=== PATIENT | female | born 1965 | race Caucasian/White ===

== ENCOUNTER 2016-12-14 13:29 | Emergency (ER) | payer MEDICARE, OTHER ==
--- NOTE | 2016-12-14 14:06 | ED ---
General Adult HPI - General Chief complaint: Recheck/Abnormal Lab/Rx Stated complaint: Rx Refill Time Seen by Provider: 12/14/16 13:51 Source: patient, RN notes reviewed Mode of arrival: ambulatory Limitations: no limitations - History of Present Illness Initial comments: 51-year-old female presents to the emergency Department chief complaint of medication refill. Patient states that she moved back from [place] last month and she does not see for another week and a half. Patient states that she needs her medications refilled. Patient states that she hasn't had any fever chills cough cold runny nose with this. Patient denies any complaints at this time. Patient denies any recent fever, chills, shortness of breath, chest pain, back pain, abdominal pain, nausea vomiting, numbness or tingling, dysuria or hematuria, constipation or diarrhea, headaches or visual changes, or any other current symptoms. - Related Data Home Medications Medication Instructions Recorded Confirmed HYDROcodone/APAP 10-325MG [[place] 1 tab PO QID PRN 12/14/16 12/14/16 10-325] LORazepam [Ativan] 2 mg PO TID 12/14/16 12/14/16 Medroxyprogesterone Acetate 150 mg IM Q90D 12/14/16 12/14/16 [Depo-Provera] Previous Rx's Medication Instructions Recorded Divalproex [Depakote] 500 mg PO BID #10 tab 12/14/16 Esomeprazole Magnesium [NexIUM] 40 mg PO DAILY #10 tab 12/14/16 Levothyroxine Sodium [Synthroid] 150 mcg PO DAILY #10 tab 12/14/16 Allergies Allergy/AdvReac Type Severity Reaction Status Date / Time codeine Allergy Unknown Verified 12/14/16 14:12 Review of Systems ROS Statement: Those systems with pertinent positive or pertinent negative responses have been documented in the HPI. ROS Other: All systems not noted in ROS Statement are negative. Past Medical History Past Medical History: GERD/Reflux Additional Past Medical History / Comment(s): back pain History of Any Multi-Drug Resistant Organisms: None Reported Past Surgical History: Breast Surgery Past Psychological History: Anxiety, Bipolar Smoking Status: Current some day smoker Past Alcohol Use History: None Reported Past Drug Use History: None Reported General Exam Limitations: no limitations General appearance: alert, in no apparent distress ENT exam: Present: normal exam, mucous membranes moist Neck exam: Present: normal inspection. Absent: tenderness, meningismus, lymphadenopathy Respiratory exam: Present: normal lung sounds bilaterally. Absent: respiratory distress, wheezes, rales, rhonchi, stridor Cardiovascular Exam: Present: regular rate, normal rhythm, normal heart sounds. Absent: systolic murmur, diastolic murmur, rubs, gallop, clicks Neurological exam: Present: alert, oriented X3 Psychiatric exam: Present: normal affect, normal mood Skin exam: Present: warm, dry, intact, normal color. Absent: rash Course Vital Signs 12/14/16 13:41 Temperature 98.2 F Pulse Rate 94 Respiratory 20 Rate Blood Pressure 145/91 O2 Sat by Pulse 97 Oximetry Medical Decision Making - Medical Decision Making 51-year-old female presents emergency Department chief complaint of needing a medication refill. This and massive heart was done and we did verify the medications with pharmacy. At this time an abscess done that does not show the patient having any medications given from here in [place]. Unable assess medications from [place]. Her pharmacy technicians have been looking into it. At this time we are unable to verify the patient's medications. This and we will give her her Depakote as well as her Nexium - Lab Data Lab Results 12/14/16 Range/Units 14:14 Urine Opiates Screen Not Detected (NotDetected) Ur Oxycodone Screen Not Detected (NotDetected) Urine Methadone Screen Not Detected (NotDetected) Ur Propoxyphene Screen Not Detected (NotDetected) Ur Barbiturates Screen Not Detected (NotDetected) U Tricyclic Antidepress Not Detected (NotDetected) Ur Phencyclidine Scrn Not Detected (NotDetected) Ur Amphetamines Screen Not Detected (NotDetected) U Methamphetamines Scrn Not Detected (NotDetected) U Benzodiazepines Scrn Detected H (NotDetected) Urine Cocaine Screen Not Detected (NotDetected) U Marijuana (THC) Screen Detected H (NotDetected) Disposition Clinical Impression: Encounter for medication refill Disposition: HOME SELF-CARE Condition: Stable Instructions: Valproic Acid (By mouth) Additional Instructions: Please use medication as discussed. Please follow up with family doctor if symptoms have not improved over the next two days. Please return to the emergency room if your symptoms increase or worsen or for any other concerns. Prescriptions: Divalproex [Depakote] 500 mg PO BID #10 tab Esomeprazole Magnesium [NexIUM] 40 mg PO DAILY #10 tab Levothyroxine Sodium [Synthroid] 150 mcg PO DAILY #10 tab Referrals: Gabbie Rosen MD [Primary Care Provider] - 1-2 days Time of Disposition: 15:04
[2016-12-14 15:14] VITALS: BP 140/90; PULSE 92; RESP 18; TEMP 98.3
== END 2016-12-14 15:13 | disposition home or self-care (01) ==
LOC: EC 13:29
DX: Z76.0 Encounter for issue of repeat prescription (principal); F17.200 Nicotine dependence, unspecified, uncomplicated; Z88.5 Allergy status to narcotic agent; Z79.3 Long term (current) use of hormonal contraceptives; Z79.899 Other long term (current) drug therapy
CPT/HCPCS: 80306; 99282

== ENCOUNTER 2017-09-26 22:13 | Inpatient (IN) | payer MEDICARE ==
[2017-09-26] MEDS ORDERED: IBUPROFEN 600 MG TAB PO STA (23:15)
[2017-09-26] MEDS ORDERED: ACETAMINOPHEN TAB 500 MG TAB PO STA (23:15)
[2017-09-26] MEDS ORDERED: LORazepam 1 MG TAB PO STA (23:29)
[2017-09-27 00:05] LABS: HCT 44.5 % (34.0-46.0); HGB 15.2 gm/dL (11.4-16.0); MCH 28.6 pg (25.0-35.0); MCHC 34.1 g/dL (31.0-37.0); MCV 83.8 fL (80.0-100.0); Mean Platelet Volume 7.8; Platelet Count 338 k/uL (150-450); RBC 5.31 m/uL (3.80-5.40); RDW 14.8 % (11.5-15.5); WBC 15.9 k/uL (3.8-10.6)
[2017-09-27 00:08] LABS: Alcohol <10 mg/dL
[2017-09-27 00:13] LABS: Valproic Acid (Depakene) <10.0 ug/mL
[2017-09-27 00:15] LABS: Appearance,Urine Clear (Clear); Bacteria,Urine Rare /hpf; Bilirubin,Urine Negative (Negative); Blood,Urine Trace (Negative); Color,Urine Light Yellow; Glucose,Urine (UA) Negative (Negative); Ketones,Urine Negative (Negative); Leukocyte Esterase,Urine Negative (Negative); Nitrite,Urine Negative (Negative); PH, Urine 6.5 (5.0-8.0); Protein,Urine Negative (Negative); RBC,Urine <1 /hpf (0-5); Specific Gravity,Urine 1.001 (1.001-1.035); Squamous Epithelial Cell,Urine <1 /hpf (0-4); Urobilinogen,Urine <2.0 mg/dL (<2.0); WBC,Urine <1 /hpf (0-5)
[2017-09-27 00:22] LABS: Amphetamine Screen,Urine Not Detected (NotDetected); Barbiturate Screen,Urine Not Detected (NotDetected); Benzodiazepines Screen,Urine Detected (NotDetected); Cocaine Screen,Urine Not Detected (NotDetected); Methadone Screen, Urine Not Detected (NotDetected); Opiate Screen,Urine Not Detected (NotDetected); Oxycodone Screen, Urine Not Detected (NotDetected); Phencyclidine Screen,Urine Not Detected (NotDetected); Tricyclic Antidepressant,Urine Not Detected (NotDetected); Urn Cannabinoid Scrn Not Detected (NotDetected)
[2017-09-27 00:40] LABS: ALT 15 U/L (9-52); AST 21 U/L (14-36); Albumin 4.2 g/dL (3.5-5.0); Alkaline Phosphatase 83 U/L (38-126); Anion Gap 16 mmol/L; Blood Urea Nitrogen 5 mg/dL (7-17); Calcium 9.9 mg/dL (8.4-10.2); Carbon Dioxide 24 mmol/L (22-30); Chloride 100 mmol/L (98-107); Glucose 93 mg/dL (74-99); Potassium 3.4 mmol/L (3.5-5.1); Sodium 140 mmol/L (137-145); Total Bilirubin 0.3 mg/dL (0.2-1.3); Total Protein 7.4 g/dL (6.3-8.2)
--- NOTE | 2017-09-27 00:53 | ED ---
Recheck HPI - General Chief Complaint: Recheck/Abnormal Lab/Rx Stated Complaint: mental health Time Seen by Provider: 09/26/17 22:46 Source: patient, RN notes reviewed, old records reviewed Mode of arrival: ambulatory Limitations: no limitations - History of Present Illness Initial Comments: Patient is a 51-year-old female chief complaint of michelle. Patient is demonstrating behavior of pressured speech, and loose associations. She states that she knows Hitler from [place]. She also states that she's been on multiple medications to manage this. She states she's been out of her medications for the past few days. Patient reports that she has not felt feverish or chilled or has any signs of infection. She states that she has been admitted in the past. She states she wants to be admitted to the psychiatric unit to get stabilized. - Related Data Home Medications Medication Instructions Recorded Confirmed Levothyroxine Sodium [Synthroid] 25 mcg PO DAILY 04/15/17 09/26/17 Diazepam [Valium] 10 mg PO HS PRN 09/26/17 09/26/17 Esomeprazole Magnesium [NexIUM] 40 mg PO DAILY 09/26/17 09/26/17 FLUoxetine HCL [PROzac] 20 mg PO BID 09/26/17 09/26/17 HYDROcodone/APAP 10-325MG [[place] 1 tab PO Q6H PRN 09/26/17 09/26/17 10-325] LORazepam [Ativan] 2 mg PO TID 09/26/17 09/26/17 Previous Rx's Medication Instructions Recorded ARIPiprazole IM [Abilify Maintena] 400 mg IM QMONTH #1 vial 05/19/17 Divalproex ER [Depakote ER] 1,500 mg PO HS #90 tab.er.24h 05/19/17 QUEtiapine [SEROquel] 100 mg PO 0900,1600 #60 tab 05/19/17 QUEtiapine [SEROquel] 400 mg PO HS #30 tab 05/19/17 Allergies Allergy/AdvReac Type Severity Reaction Status Date / Time codeine AdvReac Itching Verified 09/26/17 23:27 Review of Systems ROS Statement: Those systems with pertinent positive or pertinent negative responses have been documented in the HPI. ROS Other: All systems not noted in ROS Statement are negative. Past Medical History Past Medical History: GERD/Reflux Additional Past Medical History / Comment(s): back pain History of Any Multi-Drug Resistant Organisms: None Reported Past Surgical History: Breast Surgery Past Psychological History: Anxiety, Bipolar Smoking Status: Current some day smoker Past Alcohol Use History: None Reported Past Drug Use History: None Reported General Exam - General Exam Comments Initial Comments: This is a manic 51-year-old female. She is alert. Limitations: no limitations General appearance: alert, in no apparent distress, anxious Head exam: Present: atraumatic, normocephalic, normal inspection Eye exam: Present: normal appearance, PERRL, EOMI. Absent: scleral icterus, conjunctival injection, periorbital swelling ENT exam: Present: normal exam, mucous membranes moist Neck exam: Present: normal inspection. Absent: tenderness, meningismus, lymphadenopathy Respiratory exam: Present: normal lung sounds bilaterally. Absent: respiratory distress, wheezes, rales, rhonchi, stridor Cardiovascular Exam: Present: regular rate, normal rhythm, normal heart sounds. Absent: systolic murmur, diastolic murmur, rubs, gallop, clicks GI/Abdominal exam: Present: soft, normal bowel sounds. Absent: distended, tenderness, guarding, rebound, rigid Back exam: Present: normal inspection Neurological exam: Present: alert, CN II-XII intact Psychiatric exam: Present: anxious, manic. Absent: normal affect, normal mood Skin exam: Present: warm, dry, intact, normal color. Absent: rash Course Vital Signs 09/26/17 09/26/17 09/26/17 22:31 22:50 23:55 Temperature 101.7 F H 99.2 F Pulse Rate 111 H Respiratory 20 16 Rate Blood Pressure 140/87 O2 Sat by Pulse 96 Oximetry 09/27/17 02:19 Temperature 98.8 F Pulse Rate 93 Respiratory 18 Rate Blood Pressure 119/75 O2 Sat by Pulse 96 Oximetry - Reevaluation(s) Reevaluation #1: 09/27/17 04:02 Patient's moods have been labile through emergency department course. She's been calm and cooperative and shortly afterward she has been yelling and screaming and nurses. Medical Decision Making - Medical Decision Making 51-year-old female presented to emergency Department chief complaint of michelle and labile moods. She also was somewhat concerned that people are out to get her. Patient initially arrived with a fever 101. She is given IV fluids labwork obtained. Patient labwork was reviewed elevated white blood cell count. She would not have a chest x-ray any further evaluation in regards to the source of the fever at this time. Urinalysis shows no infection. She complains of no abdominal pain cough or any other symptoms. She is quite manic. Labile mood swings. She states that she knows Hitler from [place], she also states that she is the best. 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 She isn't demonstrating was so she should. Patient will be admitted to the psychiatric unit after she was cleared for EPS. - Lab Data Result diagrams: 09/26/17 23:45 09/26/17 23:45 Lab Results 09/26/17 09/26/17 09/26/17 Range/Units 23:45 23:45 23:45 WBC 15.9 H (3.8-10.6) k/uL RBC 5.31 (3.80-5.40) m/uL Hgb 15.2 (11.4-16.0) gm/dL Hct 44.5 (34.0-46.0) % MCV 83.8 (80.0-100.0) fL MCH 28.6 (25.0-35.0) pg MCHC 34.1 (31.0-37.0) g/dL RDW 14.8 (11.5-15.5) % Plt Count 338 (150-450) k/uL Neutrophils % (Manual) 59 % Band Neutrophils % 8 % Lymphocytes % (Manual) 27 % Monocytes % (Manual) 6 % Neutrophils # (Manual) 10.60 H (1.3-7.7) k/uL Lymphocytes # (Manual) 4.29 (1.0-4.8) k/uL Monocytes # (Manual) 0.95 (0-1.0) k/uL Nucleated RBCs 0 (0-0) /100 WBC Manual Slide Review Performed Large Platelets Present Polychromasia Present Poikilocytosis (manual Present Anisocytosis (manual) Present Sodium 140 (137-145) mmol/L Potassium 3.4 L (3.5-5.1) mmol/L Chloride 100 (98-107) mmol/L Carbon Dioxide 24 (22-30) mmol/L Anion Gap 16 mmol/L BUN 5 L (7-17) mg/dL Creatinine 0.60 (0.52-1.04) mg/dL Est GFR (CKD-EPI)AfAm >90 (>60 ml/min/1.73 sqM) Est GFR (CKD-EPI)NonAf >90 (>60 ml/min/1.73 sqM) Glucose 93 (74-99) mg/dL Calcium 9.9 (8.4-10.2) mg/dL Total Bilirubin 0.3 (0.2-1.3) mg/dL AST 21 (14-36) U/L ALT 15 (9-52) U/L Alkaline Phosphatase 83 (38-126) U/L Total Protein 7.4 (6.3-8.2) g/dL Albumin 4.2 (3.5-5.0) g/dL Urine Color Light Yellow Urine Appearance Clear (Clear) Urine pH 6.5 (5.0-8.0) Ur Specific [place] 1.001 (1.001-1.035) Urine Protein Negative (Negative) Urine Glucose (UA) Negative (Negative) Urine Ketones Negative (Negative) Urine Blood Trace H (Negative) Urine Nitrite Negative (Negative) Urine Bilirubin Negative (Negative) Urine Urobilinogen <2.0 (<2.0) mg/dL Ur Leukocyte Esterase Negative (Negative) Urine RBC <1 (0-5) /hpf Urine WBC <1 (0-5) /hpf Ur Squamous Epith Cells <1 (0-4) /hpf Urine Bacteria Rare H (None) /hpf Urine Opiates Screen Not Detected (NotDetected) Ur Oxycodone Screen Not Detected (NotDetected) Urine Methadone Screen Not Detected (NotDetected) Ur Propoxyphene Screen Not Detected (NotDetected) Ur Barbiturates Screen Not Detected (NotDetected) Valproic Acid <10.0 ug/mL U Tricyclic Antidepress Not Detected (NotDetected) Ur Phencyclidine Scrn Not Detected (NotDetected) Ur Amphetamines Screen Not Detected (NotDetected) U Methamphetamines Scrn Not Detected (NotDetected) U Benzodiazepines Scrn Detected H (NotDetected) Urine Cocaine Screen Not Detected (NotDetected) U Marijuana (THC) Screen Not Detected (NotDetected) Serum Alcohol <10 mg/dL Disposition Clinical Impression: Michelle, Psychosis Disposition: ADMITTED IP TO THIS HOSP Condition: Stable Time of Disposition: 04:03
[2017-09-27 01:21] LABS: Band Neutrophils % 8 %; Lymphocytes # (M) 4.29 k/uL (1.0-4.8); Monocytes # (M) 0.95 k/uL (0-1.0); Neutrophils % (M) 59 %; Nucleated Red Blood Cells 0 /100 WBC (0-0); Polychromasia Present; Total Cells Counted 100
[2017-09-27 01:22] LABS: Anisocytosis (M) Present; Large Platelets Present
[2017-09-27 01:23] LABS: Poikilocytosis (M) Present
[2017-09-27] MEDS ORDERED: MAGNESIUM HYDROXIDE 2,400 MG/10 ML CUP PO PRN (02:45)
[2017-09-27] MEDS ORDERED: ZIPRASIDONE 20 MG VIAL IM PRN (02:45)
[2017-09-27] MEDS ORDERED: MAG HYDROX/AL HYDROX/SIMETH 30 ML CUP PO PRN (02:45)
[2017-09-27] MEDS: NICOTINE 14MG/24HR PATCH TRANSDERM SCH (08:41)
[2017-09-27] MEDS: PANTOPRAZOLE 40 MG TABLET PO SCH (08:41)
[2017-09-27] MEDS: LEVOTHYROXINE 25 MCG TAB PO SCH (08:41)
[2017-09-27] MEDS ORDERED: LORazepam 2 MG/ML INJ IM PRN (08:52)
[2017-09-27] MEDS: LORazepam 1 MG TAB PO PRN ×2 (11:27→19:23)
[2017-09-27] MEDS ORDERED: POTASSIUM CHLORIDE ER 20 MEQ TAB.ER PO STA (11:44)
[2017-09-27] MEDS: ZIPRASIDONE 20 MG VIAL IM PRN ×2 (12:07→21:20)
[2017-09-27] MEDS: IBUPROFEN 200 MG TAB PO PRN ×2 (12:31→19:23)
--- NOTE | 2017-09-27 13:17 | P.CONS ---
History of Present Illness - Reason for Consult Consult date: 09/27/17 Medical management Requesting physician: Sandra Agrawal - Chief Complaint Not taking psych meds - History of Present Illness This is a 51-year-old female with a known past medical history of bipolar, anxiety, hypothyroidism and nicotine dependence. Patient presents to the emergency room with the chief complaint of herson and not taking her psych meds. In the ER she did demonstrated behavior of pressured speech and loose associations. She was stating things such as she knows Hitler from [place]. Patient is currently in the psychiatric unit lying in bed comfortably with no evidence of distress. Patient refuses to answer any questions or to be examined. All of history was obtained from ER report. Patient however did report that she had been without her medications for a few days. She did present with a fever of 101.7 and a white count of 15.9 heart rate was 111. She 's had no further fevers and heart rate has normalized. She refused blood work and chest x-ray. Urinalysis shows no evidence of any infection. Patient does have some trace blood noted in her urinalysis. Drug screen was positive for benzodiazepine. Serum alcohol level less than 10. Potassium was 3.4 and she is receiving supplement. Review of Systems Patient refused to be assessed for review of systems Past Medical History Past Medical History: GERD/Reflux Additional Past Medical History / Comment(s): back pain History of Any Multi-Drug Resistant Organisms: None Reported Past Surgical History: Breast Surgery Smoking Status: Current every day smoker Medications and Allergies Home Medications Medication Instructions Recorded Confirmed Type Levothyroxine Sodium [Synthroid] 25 mcg PO DAILY 04/15/17 09/27/17 History ARIPiprazole IM [Abilify Maintena] 400 mg IM QMONTH #1 vial 05/19/17 09/27/17 Rx Divalproex ER [Depakote ER] 1,500 mg PO HS #90 tab.er.24h 05/19/17 09/27/17 Rx QUEtiapine [SEROquel] 100 mg PO 0900,1600 #60 tab 05/19/17 09/27/17 Rx QUEtiapine [SEROquel] 400 mg PO HS #30 tab 05/19/17 09/27/17 Rx Diazepam [Valium] 10 mg PO HS PRN 09/26/17 09/27/17 History Esomeprazole Magnesium [NexIUM] 40 mg PO DAILY 09/26/17 09/27/17 History FLUoxetine HCL [PROzac] 20 mg PO BID 09/26/17 09/27/17 History HYDROcodone/APAP 10-325MG [[place] 1 tab PO Q6H PRN 09/26/17 09/27/17 History 10-325] LORazepam [Ativan] 2 mg PO TID 09/26/17 09/27/17 History Allergies Allergy/AdvReac Type Severity Reaction Status Date / Time codeine AdvReac Itching Verified 09/27/17 04:58 Physical Exam Vitals: Vital Signs Temp Pulse Pulse Resp BP BP Pulse Ox 09/27/17 04:28 97.6 F 84 17 137/79 09/27/17 02:19 98.8 F 93 18 119/75 96 09/26/17 23:55 99.2 F 09/26/17 22:50 16 09/26/17 22:31 101.7 F H 111 H 20 140/87 96 Intake and Output 09/26/17 09/27/17 09/27/17 22:59 06:59 14:59 Other: Weight 63.503 kg 81.6 kg Patient refused to be examined Results CBC & Chem 7: 09/26/17 23:45 09/26/17 23:45 Labs: Abnormal Lab Results - Last 24 Hours (Table) 09/26/17 09/26/17 09/26/17 Range/Units 23:45 23:45 23:45 WBC 15.9 H (3.8-10.6) k/uL Neutrophils # (Manual) 10.60 H (1.3-7.7) k/uL Potassium 3.4 L (3.5-5.1) mmol/L BUN 5 L (7-17) mg/dL Urine Blood Trace H (Negative) Urine Bacteria Rare H (None) /hpf U Benzodiazepines Scrn Detected H (NotDetected) Assessment and Plan Assessment: 1. Bipolar history with evidence of herson on presentation. Patient has been admitted to the psychiatric unit. Patient has been without her medications at home for few days. Psychiatry is following closely will await their further recommendations. Also check thyroid level. 2. Evidence of fever, leukocytosis and tachycardia present on admission. No evidence of a UTI. Patient refused chest x-ray in the ER. Another chest x-ray will be ordered. Patient is refusing any further questioning 3. Nicotine dependence: Continue nicotine patch 4. Hypothyroidism: Check TSH level. Continue Synthroid 5. hypokalemia: Potassium 3.4. Will give potassium supplement. Repeat potassium level in a.m. Thank you for this consultation. We will follow up on routine blood work in the morning and chest x-ray. And then follow along with you as needed. Please call if there is any questions or concerns. Time with Patient: Greater than 30 (Greater than 50% of the total time spent in counseling and coordination of care. I performed an examination of the patient and discussed their management with the physician Dog Catcher. I have reviewed the Physician Dog Catcher's notes and agree with the documented findings and plan of care)
--- NOTE | 2017-09-27 13:56 | P.HP ---
Psychiatric H&P - . H&P Date: 09/27/17 History & Physical: Allergies Allergy/AdvReac Type Severity Reaction Status Date / Time codeine AdvReac Itching Verified 09/27/17 04:58 Vital Signs Temp 97.6 F 09/27/17 04:28 Pulse 84 09/27/17 04:28 Resp 17 09/27/17 04:28 BP 137/79 09/27/17 04:28 Pulse Ox 96 09/27/17 02:19 Intake & Output 09/26/17 09/27/17 09/27/17 18:59 06:59 18:59 Weight 81.6 kg Laboratory Last Values WBC 15.9 k/uL (3.8-10.6) H 09/26/17 23:45 RBC 5.31 m/uL (3.80-5.40) 09/26/17 23:45 Hgb 15.2 gm/dL (11.4-16.0) 09/26/17 23:45 Hct 44.5 % (34.0-46.0) 09/26/17 23:45 MCV 83.8 fL (80.0-100.0) 09/26/17 23:45 MCH 28.6 pg (25.0-35.0) 09/26/17 23:45 MCHC 34.1 g/dL (31.0-37.0) 09/26/17 23:45 RDW 14.8 % (11.5-15.5) 09/26/17 23:45 Plt Count 338 k/uL (150-450) 09/26/17 23:45 Neutrophils % (Manual) 59 % 09/26/17 23:45 Band Neutrophils % 8 % 09/26/17 23:45 Lymphocytes % (Manual) 27 % 09/26/17 23:45 Monocytes % (Manual) 6 % 09/26/17 23:45 Neutrophils # (Manual) 10.60 k/uL (1.3-7.7) H 09/26/17 23:45 Lymphocytes # (Manual) 4.29 k/uL (1.0-4.8) 09/26/17 23:45 Monocytes # (Manual) 0.95 k/uL (0-1.0) 09/26/17 23:45 Nucleated RBCs 0 /100 WBC (0-0) 09/26/17 23:45 Manual Slide Review Performed 09/26/17 23:45 Large Platelets Present 09/26/17 23:45 Polychromasia Present 09/26/17 23:45 Poikilocytosis (manual Present 09/26/17 23:45 Anisocytosis (manual) Present 09/26/17 23:45 Sodium 140 mmol/L (137-145) 09/26/17 23:45 Potassium 3.4 mmol/L (3.5-5.1) L 09/26/17 23:45 Chloride 100 mmol/L (98-107) 09/26/17 23:45 Carbon Dioxide 24 mmol/L (22-30) 09/26/17 23:45 Anion Gap 16 mmol/L 09/26/17 23:45 BUN 5 mg/dL (7-17) L 09/26/17 23:45 Creatinine 0.60 mg/dL (0.52-1.04) 09/26/17 23:45 Est GFR (CKD-EPI)AfAm >90 (>60 ml/min/1.73 sqM) 09/26/17 23:45 Est GFR (CKD-EPI)NonAf >90 (>60 ml/min/1.73 sqM) 09/26/17 23:45 Glucose 93 mg/dL (74-99) 09/26/17 23:45 Calcium 9.9 mg/dL (8.4-10.2) 09/26/17 23:45 Total Bilirubin 0.3 mg/dL (0.2-1.3) 09/26/17 23:45 AST 21 U/L (14-36) 09/26/17 23:45 ALT 15 U/L (9-52) 09/26/17 23:45 Alkaline Phosphatase 83 U/L (38-126) 09/26/17 23:45 Total Protein 7.4 g/dL (6.3-8.2) 09/26/17 23:45 Albumin 4.2 g/dL (3.5-5.0) 09/26/17 23:45 Urine Color Light Yellow 09/26/17 23:45 Urine Appearance Clear (Clear) 09/26/17 23:45 Urine pH 6.5 (5.0-8.0) 09/26/17 23:45 Ur Specific [place] 1.001 (1.001-1.035) 09/26/17 23:45 Urine Protein Negative (Negative) 09/26/17 23:45 Urine Glucose (UA) Negative (Negative) 09/26/17 23:45 Urine Ketones Negative (Negative) 09/26/17 23:45 Urine Blood Trace (Negative) H 09/26/17 23:45 Urine Nitrite Negative (Negative) 09/26/17 23:45 Urine Bilirubin Negative (Negative) 09/26/17 23:45 Urine Urobilinogen <2.0 mg/dL (<2.0) 09/26/17 23:45 Ur Leukocyte Esterase Negative (Negative) 09/26/17 23:45 Urine RBC <1 /hpf (0-5) 09/26/17 23:45 Urine WBC <1 /hpf (0-5) 09/26/17 23:45 Ur Squamous Epith Cells <1 /hpf (0-4) 09/26/17 23:45 Urine Bacteria Rare /hpf (None) H 09/26/17 23:45 Urine Opiates Screen Not Detected (NotDetected) 09/26/17 23:45 Ur Oxycodone Screen Not Detected (NotDetected) 09/26/17 23:45 Urine Methadone Screen Not Detected (NotDetected) 09/26/17 23:45 Ur Propoxyphene Screen Not Detected (NotDetected) 09/26/17 23:45 Ur Barbiturates Screen Not Detected (NotDetected) 09/26/17 23:45 Valproic Acid <10.0 ug/mL 09/26/17 23:45 U Tricyclic Antidepress Not Detected (NotDetected) 09/26/17 23:45 Ur Phencyclidine Scrn Not Detected (NotDetected) 09/26/17 23:45 Ur Amphetamines Screen Not Detected (NotDetected) 09/26/17 23:45 U Methamphetamines Scrn Not Detected (NotDetected) 09/26/17 23:45 U Benzodiazepines Scrn Detected (NotDetected) H 09/26/17 23:45 Urine Cocaine Screen Not Detected (NotDetected) 09/26/17 23:45 U Marijuana (THC) Screen Not Detected (NotDetected) 09/26/17 23:45 Serum Alcohol <10 mg/dL 09/26/17 23:45 09/27/17 13:19 Identification: Patient is a 51-year-old female who presented to the emergency room stating that she needed treatment. History of Present Illness: Patient is a poor historian, she was unable to give me any history when I interviewed her. Patient's chart was reviewed and the patient was last admitted here in March 2017. Speaking with the [facility] liaison the patient apparently was also in [facility] in May 2017. She has not been seen for any medication reviews a [facility] since her discharge from here in April as well as her discharge from [facility] in May. Patient was on Abilify long-acting injectable in March, Seroquel 500 mg a day and Depakote 1500 mg extended release at bedtime. Patient required 2 antipsychotics to control her symptoms. Patient's MAP was reviewed and the patient has not been prescribed any opiates within the recent past, no Valium has been prescribed and the patient was most recently prescribed Ativan 2 mg given numbers 90 on August 09. 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 Patient was asking for IM medications to relax as well as something for pain. Patient was unable to give any history time. Past Psychiatric History: Patient was last here in March 2017 and was also hospitalized at [facility] in May 2017. Patient was placed on Depakote , Abilify, Seroquel during her last admission here. Further information regarding the patient's last treatment is not available as the patient is not able to cooperate during the interview. Past Medical/Surgical History: Patient has a history of hypothyroidism, GERD Family History: Unable to obtain at this time Social History: Patient is unable to give any history at this time as she is not able to respond to questioning Substance Use History: Unable to obtain Legal History: Unable to obtain Mental status: Appearance/Attitude: Patient is dressed in a hospital gown, disheveled, pacing Behavior: Patient does not exhibit any psychomotor retardation but is agitated, pacing during the interview Speech/Language: Patient's speech is pressured Thought Process: Patient is not able to respond to questions as she is exhibiting flight of ideas Thought Content: Patient does not appear to be responding to internal stimuli, but she is rambling and pressured and mentions John, that her soldiers are downstairs, talks about mensa, talked about requiring medication. Patient requested medication to relax and for her pain. Patient was unable to respond to any questions. Suicidal/Homicidal Ideation: Patient did not make any suicidal or homicidal statements Sensorium/Cognition: Patient is alert and oriented to person and location further testing is not possible as patient is not cooperative with questioning Mood/Affect: Patient's mood is agitated, irritable and labile Insight/Judgment: Patient's insight and judgment are poor Intellectual Functioning: Patient's intellectual functioning appears average Strength/Weakness: Unable to assess Assessment: Patient was admitted to the inpatient unit in March and was here for one month before she was released, since her release in April the patient has not been compliant with any medication review follow-up at [facility] and in fact required another admission to [facility] in May 2017. On her discharge at the last admission patient was maintained on Abilify 400 mg long-acting every month, Seroquel 500 mg a day and Depakote 1500 mg extended release at bedtime. It is unclear if the patient was compliant with any of these medications for any period of time after her discharge. Patient presents today with symptoms of herson with a rambling pressured speech, flight of ideas, pacing and agitated as well as being irritable and is unable to respond or cooperate to take a history. Admission Diagnosis: Bipolar type I disorder, manic episode Plan: Patient was admitted on a voluntary basis, routine observation in group and activity therapy were ordered. Patient had blood work ordered although she refused this morning and it is been reordered. Patient was seen in medical consultation. Patient is being continued on her Synthroid. Patient was restarted on Depakote at 500 mg extended-release to target her mood and we'll slowly be increased to her prior dose of 1500 mg at bedtime. Patient and I discussed her response to Abilify which even on long-acting the patient required a second antipsychotic. Patient will be tried on Invega and will begin 6 mg at bedtime. Patient also has Geodon 10 mg 4 times a day as needed for agitation as well as Ativan. Should patient respond to oral Invega Invega long-acting injectable will be presented to the patient. Patient requires hospitalization to further stabilize her mood. Once patient is more stable a more complete history will be obtained. The hemoglobin A1c and lipid panel will also be obtained, patient was a repeat CBC, basic metabolic panel and TSH were also ordered. 09/27/17 13:23 09/27/17 13:25 09/27/17 13:51 09/27/17 13:54
[2017-09-27] MEDS: PALIPERIDONE 6 MG TAB.ER.24 PO SCH (20:07)
[2017-09-27] MEDS: DIVALPROEX ER 500 MG TAB.ER.24H PO SCH (20:07)
[2017-09-28] MEDS: IBUPROFEN 200 MG TAB PO PRN ×2 (04:13→21:56)
[2017-09-28] MEDS: LEVOTHYROXINE 25 MCG TAB PO SCH (06:49)
[2017-09-28] MEDS: ZIPRASIDONE 20 MG VIAL IM PRN ×2 (08:51→22:40)
[2017-09-28] MEDS: PANTOPRAZOLE 40 MG TABLET PO SCH (08:51)
[2017-09-28] MEDS: NICOTINE 14MG/24HR PATCH TRANSDERM SCH (08:51)
[2017-09-28] MEDS: LORazepam 2 MG/ML INJ IM PRN ×2 (08:52→23:46)
--- NOTE | 2017-09-28 14:27 | P.PN ---
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 I discussed her prior medication of Abilify with her and she agreed that it had not been working well for her and we discussed again Invega being started. Patient also felt that the Depakote had been effective for her and I discussed with her that it had been restarted as well. Patient states that she was feeling restless and wanted more medication to help her relax. Mental Status: Appearance/Attitude: Patient is casually dressed, her eye makeup was applied heavily, her hair was styled. She was cooperative Behavior: Patient did not exhibit any psychomotor retardation, but appears restless is up pacing in her room Speech/Language: Patient's speech remains pressured, normal volume and rhythm and coherent Thought Process: Patient was able to respond to some questions in a goal- directed fashion, evidence of flight of ideas Thought Content: Patient is observed holding her hands to her head as though she is talking on the phone, having a conversation, patient continues to express ideas regarding [employer], the [employer] although less than yesterday. 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 Patient did not sleep more than 4 hours last night. She is eating. Suicidal/Homicidal Ideation: Patient does not verbalize any suicidal or homicidal ideation Sensorium/Cognition: Patient is alert and oriented to person, situation, date and patient is not able to focus Mood/Affect: Patient's mood remains labile, her affect is appropriate to her mood Insight/Judgment: Patient's insight and judgment are fair Assessment: Patient was less pressured in her speech today, was able to respond to some questions in a goal-directed fashion but continues to need much verbal redirection to do so. Patient states that she needs something to help her relax and she feels very tense. Patient was able to discuss the Depakote a been effective for her but she did not think that the Abilify had done much for her. Patient states that she came here to get back on her medications. Patient slept 4 hours last night, continues to express delusional ideation and is observed holding her hand to her head and talking as though she is on the phone. Plan: Patient continue on Invega 6 mg at bedtime, Depakote 500 mg extended- release at bedtime and Geodon and Ativan on an as-needed basis. Patient again refused blood work, we will reorder when patient is better able to cooperate as well as reordering the chest x-ray as patient is not able to leave the unit for such a test at this time. Patient continues to require hospitalization to further stabilize her mood and psychotic symptoms.
[2017-09-28] MEDS: LORazepam 1 MG TAB PO PRN (16:34)
[2017-09-28] MEDS: PALIPERIDONE 6 MG TAB.ER.24 PO SCH (21:56)
[2017-09-28] MEDS: DIVALPROEX ER 500 MG TAB.ER.24H PO SCH (21:56)
[2017-09-29] MEDS: ACETAMINOPHEN TAB 325 MG TAB PO PRN ×2 (00:33→17:03)
[2017-09-29] MEDS: LEVOTHYROXINE 25 MCG TAB PO SCH ×2 (05:55→08:47)
[2017-09-29] MEDS: PANTOPRAZOLE 40 MG TABLET PO SCH (08:47)
[2017-09-29] MEDS: NICOTINE 14MG/24HR PATCH TRANSDERM SCH (08:48)
[2017-09-29] MEDS: LORazepam 1 MG TAB PO PRN ×2 (08:50→16:14)
[2017-09-29] MEDS: ZIPRASIDONE 20 MG VIAL IM PRN ×2 (11:57→19:25)
--- NOTE | 2017-09-29 12:06 | P.PN ---
Progress Note - Text Progress Note Date: 09/29/17 Interval History: Patient is a 51-year-old female who was seen today and she reports that she continues to feel restless, she states that she needs to relax. Patient is pacing in the villatoro and states that she does not want to try lithium she has been on it in the past and didn't like it, she complained of side effects from it. Patient complained of being ALLERGIC to Seroquel and states that she did not like the Abilify. Patient slept last night she reports she did well last evening. Patient required constant verbal redirection to respond to my questions. Mental Status: Appearance/Attitude: Patient is casually dressed, heavily applied makeup, lipstick outside the outline of her lips Behavior: Patient does not display any psychomotor retardation, patient is pacing in the halls, holding her hand to her head as though it was a phone and constantly carrying on a conversation. Speech/Language: Patient's speech is pressured, she is coherent Thought Process: Patient exhibits flight of ideas, she is at times able to respond in a goal-directed fashion to some questions Thought Content: Patient denies auditory or visual hallucinations, patient is seen walking the halls holding her hand to her head as though it was a phone and carrying on a conversation with Pres. [employer], with her , with friends. Patient slept about 4 hours last night, she did sleep during the day yesterday. When patient is awake she is up pacing in the halls, talking to herself. Suicidal/Homicidal Ideation: Patient denies current suicidal or homicidal ideation Sensorium/Cognition: Patient is alert and oriented to person, situation and further testing is not performed Mood/Affect: Patient's mood is labile, at times irritable and her affect is appropriate to her mood Insight/Judgment: Patient's insight and judgment are impaired Assessment: Patient continues to exhibit manic behavior with pressured speech, talking on an imaginary phone to present Carlton and others, patient is not sleeping, is constantly pacing in the villatoro. Patient when interviewed today declined a trial of lithium, stating that it gave her side effects and declined Seroquel. Stating she was ALLERGIC to it. Patient attempts to attend groups and activities but is unable to participate appropriately. Patient has been receiving Geodon as needed as well as Ativan as needed with fair results. Plan: Patient will continue on Invega 6 mg at bedtime will continue to titrate this medication, her Depakote will be increased oh thousand milligrams at bedtime. Patient continued to receive Geodon and Ativan as needed. Patient continues to require hospitalization to stabilize her mood and target her psychotic symptoms. We will reorder a CBC and TSH for tomorrow morning as patient may be more cooperative at this time.
[2017-09-29] MEDS ORDERED: DIVALPROEX ER 500 MG TAB.ER.24H PO SCH (21:00)
[2017-09-29] MEDS: PALIPERIDONE 6 MG TAB.ER.24 PO SCH (21:02)
[2017-09-30] MEDS: LORazepam 2 MG/ML INJ IM PRN (01:10)
[2017-09-30] MEDS: LEVOTHYROXINE 25 MCG TAB PO SCH (05:05)
--- NOTE | 2017-09-30 08:51 | P.PN ---
Progress Note - Text Progress Note Date: 09/30/17 Interval History: Patient is a 51-year-old female who was seen today, patient has to be seen in her room as she did not want to walk back to my office. Patient states that she did not sleep well last night and is requesting Dalmane. Patient states that she also wants to take Depakote on an as-needed basis as she was at home. Patient stated that she was talking about Hitler because she has been reading his book. Patient was requesting Lortabs. Mental Status: Appearance/Attitude: Patient is casually dressed, appears disheveled, her makeup is smeared around her eyes and she is superficially cooperative Behavior: Patient did not exhibit any psychomotor agitation or retardation, today the patient is not holding her hand to her head and talking as though she is on the phone. Speech/Language: Patient's speech is less pressured, she speaks in a normal volume and she is coherent Thought Process: Patient responds initially with a goal-directed response and then becomes tangential beginning to talk about her request for different medications. Thought Content: Patient denies auditory or visual hallucinations and states that she was talking about Hitler because she is reading his book. Patient states that she has not been talking on the phone. Patient is not holding her hand up to her head as though it is a phone and talking today. Patient continues to require redirection to respond to questions. Patient states that she slept very little last night but did nap during the afternoon. She reports her appetite is good. Suicidal/Homicidal Ideation: Patient denies any suicidal or homicidal ideation at this time Sensorium/Cognition: is alert and oriented to person, situation further testing is not possible at this time Mood/Affect: Patient's mood remains labile, irritable at times and her affect is appropriate to her mood Insight/Judgment: patient's insight and judgment is limited Assessment: patient has been cooperative with medication, stating that the Geodon injections have been helpful for her but she continues to request Dalmane and Lortabs. She states that she was using Depakote on an as-needed basis on the outside. Patient today is not talking to her hand as though it was a phone, her speech is less pressured, she continues to require redirection to respond to questions and discuss her medications. Patient slept 1 hour last night but did sleep during the afternoon yesterday. Patient attempts to attend some groups and activities. Plan: Will increase patient's Invega to 9 mg at bedtime and increase her Depakote to 1500 mg extended release at bedtime. Patient's labs were also reordered today and she was encouraged to comply with this. Patient continues to require Geodon IM as needed for agitation as well as Ativan both orally and IM for agitation. Patient continues to require hospitalization to further stabilize her mood and psychotic symptoms. We will obtain a Depakote level on Tuesday.
[2017-09-30] MEDS: NICOTINE 14MG/24HR PATCH TRANSDERM SCH (08:59)
[2017-09-30] MEDS: LORazepam 1 MG TAB PO PRN ×2 (08:59→19:11)
[2017-09-30] MEDS: PANTOPRAZOLE 40 MG TABLET PO SCH (08:59)
[2017-09-30] MEDS: DIVALPROEX ER 500 MG TAB.ER.24H PO SCH (21:55)
[2017-09-30] MEDS: PALIPERIDONE 3 MG TAB.ER.24 PO SCH (21:55)
[2017-09-30] MEDS: ZIPRASIDONE 20 MG VIAL IM PRN (22:48)
[2017-10-01] MEDS: LEVOTHYROXINE 25 MCG TAB PO SCH (05:42)
[2017-10-01] MEDS: PANTOPRAZOLE 40 MG TABLET PO SCH ×2 (11:39→14:48)
[2017-10-01] MEDS: NICOTINE 14MG/24HR PATCH TRANSDERM SCH ×2 (11:39→14:48)
--- NOTE | 2017-10-01 12:03 | P.PN ---
Progress Note - Text Progress Note Date: 10/01/17 Interval history: Patient seen in [facility] today. She initially relays that she does not want to meet with me then she comes out into the hallway and says she will talk with me. She is cooperative to come to the interview room. She comes into the interview room and relays that she is just here for 72 hour hold, that she does not want her medications changed and she is not a danger to herself or others. She then leaves the interview room. Mental status exam: She was found in her room lying in bed. She seemed agreeable initially to come to the interview room but then states that she did not want to meet with me. She then came out of the hallway and relayed that she would meet and did ambulate to the interview room. She related that she is here on a 72 hour hold and relayed that she is not a danger to herself or others and that she did not want her medications changed and left the interview room. She does not show any significant degree of agitation. Plan: We'll maintain current psychotropic medications. Monitor for any medication side effects and for her ongoing response. To cover this patient through the weekend.
[2017-10-01] MEDS: LORazepam 1 MG TAB PO PRN ×2 (14:48→21:51)
[2017-10-01] MEDS: IBUPROFEN 200 MG TAB PO PRN (16:51)
[2017-10-01] MEDS: DIVALPROEX ER 500 MG TAB.ER.24H PO SCH (21:28)
[2017-10-01] MEDS: PALIPERIDONE 3 MG TAB.ER.24 PO SCH (21:29)
[2017-10-01] MEDS: ZIPRASIDONE 20 MG VIAL IM PRN (22:46)
[2017-10-02] MEDS: LEVOTHYROXINE 25 MCG TAB PO SCH (05:55)
[2017-10-02] MEDS: LORazepam 1 MG TAB PO PRN ×3 (05:55→22:53)
[2017-10-02] MEDS: NICOTINE 14MG/24HR PATCH TRANSDERM SCH (09:30)
[2017-10-02] MEDS: PANTOPRAZOLE 40 MG TABLET PO SCH (09:31)
--- NOTE | 2017-10-02 10:34 | P.PN ---
Progress Note - Text Progress Note Date: 10/02/17 Interval history: Patient is seen in cross coverage today. She relays that she is doing well. She slept 8 hours last night, relay she is eating all of her meals. She reports that her mood is fine. She is being compliant with her psychotropic medications. She does inquire regarding pain medication, relays that she is on [place] as an outpatient. She clarifies that she was admitted to the hospital with feelings that she wasn't safe and she wanted a safe place to be. Makes reference to that she is relocating. Mental status exam: She is alert and cooperative with the interview. She has makeup on today. She reports that her mood is fine. She reports that she is not a danger to herself or others and denies any thoughts of harm to self or others. She does not verbalize any hallucinations. She denies any bothersome thoughts or paranoid thoughts. She makes a reference to being famous. Plan: Patient will be maintained on current psychotropic medication regimen. Continue to monitor her ongoing response to monitor for any medication side effects.
[2017-10-02] MEDS: DIVALPROEX ER 500 MG TAB.ER.24H PO SCH (21:56)
[2017-10-02] MEDS: PALIPERIDONE 3 MG TAB.ER.24 PO SCH (21:56)
[2017-10-02] MEDS: ZIPRASIDONE 20 MG VIAL IM PRN (23:00)
[2017-10-03] MEDS: LEVOTHYROXINE 25 MCG TAB PO SCH (06:32)
[2017-10-03] MEDS: PANTOPRAZOLE 40 MG TABLET PO SCH (08:38)
[2017-10-03] MEDS: NICOTINE 14MG/24HR PATCH TRANSDERM SCH (08:38)
[2017-10-03] MEDS: LORazepam 1 MG TAB PO PRN ×2 (08:39→19:17)
--- NOTE | 2017-10-03 14:37 | P.PN ---
Progress Note - Text Progress Note Date: 10/03/17 Interval History: Patient is a 51-year-old female who was seen today, she reports that she slept well last evening and states that she needs to be discharged soon. She states that she is moving into a new house lives next to [address] and [address]. 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 Patient states that she is not been spending much time on the phone. She reports that she has been attending groups and activities. Patient states that she is doing much better and feels that she is ready for discharge. Mental Status: Appearance/Attitude: Patient is casually dressed, wearing heavy eye makeup, makes good eye contact and was cooperative Behavior: Patient did not exhibit any psychomotor retardation, she was able to sit during the interview and she has been observed on the unit pacing up and down the halls talking to her hand as though she is on the telephone. Speech/Language: Patient's speech is still pressured, normal volume and she is coherent Thought Process: Patient is goal-directed for brief periods of time, has evidence of flight of ideas Thought Content: Patient denies any auditory or visual hallucinations, she states that she has bought a new mansion and that is next to [address] and [address]. She states that she has worked in the past [employer] and worked with [employer], she states that she is going to do singing and dancing and live with [facility]. She then stated that he lives with her now. Patient is observed on the unit holding her hand to her head as though she is on the phone and talking. Patient states that she slept and is eating well. Suicidal/Homicidal Ideation: Patient denies any suicidal or homicidal ideation at this time Sensorium/Cognition: Patient is alert and oriented to person, place, and time and her recent and remote memory are grossly intact. Mood/Affect: Patient's mood remains labile, her affect appropriate to her mood Insight/Judgment: Patient insight and judgment are impaired Assessment: Patient states that she is doing much better and requested discharge soon, she slept for 6 hours last night but continues to require at least one injection of Geodon and Ativan daily. Patient continues to walk the halls pacing and talking as though she is on the phone. She continues to express delusional ideation of a grandiose nature. She refuses lithium stating that she can't tolerate another salt in her body. Patient refused lab work again today and has not given a urine specimen. Per staff patient slept 6 hours last night and she is in and out of groups and activities. Plan: Patient will continue on Depakote 1500 mg extended release at bedtime and will increase her Invega to 12 mg at bedtime. Patient was encouraged to allow blood work to be done tomorrow for repeat CBC as well as a Depakote level and to give a urine specimen. Once a Depakote level was obtained can adjust the Depakote dosage based on this. Should patient not respond to the increase in Invega may need to consider adding another either mood stabilizer or antipsychotic. Patient continues to require hospitalization to stabilize her manic symptoms.
[2017-10-03] MEDS: DIVALPROEX ER 500 MG TAB.ER.24H PO SCH (20:57)
[2017-10-03] MEDS ORDERED: PALIPERIDONE 6 MG TAB.ER.24 PO SCH (21:00)
[2017-10-03] MEDS: ZIPRASIDONE 20 MG VIAL IM PRN (21:30)
[2017-10-04] MEDS: NICOTINE 14MG/24HR PATCH TRANSDERM SCH (09:20)
[2017-10-04] MEDS: LORazepam 1 MG TAB PO PRN ×2 (09:20→21:40)
[2017-10-04] MEDS: PANTOPRAZOLE 40 MG TABLET PO SCH (09:20)
[2017-10-04] MEDS: LEVOTHYROXINE 25 MCG TAB PO SCH (09:20)
[2017-10-04 10:28] LABS: HGB 14.9 gm/dL (11.4-16.0); MCHC 33.2 g/dL (31.0-37.0); MCV 87.4 fL (80.0-100.0); Mean Platelet Volume 8.2; Platelet Count 275 k/uL (150-450); RBC 5.15 m/uL (3.80-5.40); RDW 15.4 % (11.5-15.5); WBC 9.9 k/uL (3.8-10.6)
[2017-10-04 11:30] LABS: Band Neutrophils % 1 %; Eosinophils # (M) 0.59 k/uL (0-0.7); Lymphocytes # (M) 4.26 k/uL (1.0-4.8); Metamyelocytes % 1 %; Neutrophils % (M) 47 %; Nucleated Red Blood Cells 0 /100 WBC (0-0); Total Cells Counted 200
[2017-10-04 11:31] LABS: Anisocytosis (M) Present; Poikilocytosis (M) Present
--- NOTE | 2017-10-04 15:43 | P.PN ---
Progress Note - Text Progress Note Date: 10/04/17 Interval History: Patient is a 51-year-old female who was seen in her room, she stated that she slept fairly well last night but continues to request I am medication to assist with her sleep. Patient's states that she does not feel she needs further medication and continues to refuse the addition of lithium. Patient continued to verbalize that she was going to move into a mansion next to [place] and [employer]. She states that she dislikes talking about where she lives because she doesn't want a public knowing. Mental Status: Appearance/Attitude: Patient has heavily applied eye makeup, casually dressed and makes intermittent eye contact and is cooperative Behavior: Patient does not exhibit any psychomotor agitation or retardation and has not noticed to be pacing in the hallways as much today Speech/Language: Patient's speech is less pressured, she speaks in a normal volume and rhythm and she is coherent Thought Process: Patient is more goal-directed although at times she remains tangential Thought Content: Patient denies auditory or visual hallucinations, she continues to express delusional content regarding living near [employer], being involved with the [employer]. Patient continues to request IM Geodon at night to assist with her sleep. Patient reports her appetite is good Suicidal/Homicidal Ideation: Patient denies any current suicidal or homicidal ideation Sensorium/Cognition: Patient is alert and oriented to person, place, and time and her recent and remote memory are grossly intact Mood/Affect: Patient's mood remains labile and her affect appropriate to her mood Insight/Judgment: Patient's insight and judgment are fair Assessment: Patient appears less pressured, she was not in the hallways pacing as much today however her mood remains labile with agitation especially in the evening. Patient continues to receive IM Geodon and oral Ativan at night. Her blood pressure was low today at 82/50. Patient did allow them to draw her blood today and her CBC revealed no significant abnormalities and her Depakote level was 87.3. Patient attends some groups and activities but leaves after several minutes. Plan: We will decrease the patient's Invega to 9 mg as this may be causing her blood pressure to drop, will continue Depakote 1500 mg extended release at bedtime her Depakote level is within the therapeutic range. Patient continues to require IM Geodon and continues to refuse to allow me to add lithium to her medication. Patient continues to require hospitalization to further stabilize her mood.
[2017-10-04] MEDS: DIVALPROEX ER 500 MG TAB.ER.24H PO SCH (21:36)
[2017-10-04] MEDS: PALIPERIDONE 3 MG TAB.ER.24 PO SCH (22:51)
[2017-10-05] MEDS: LEVOTHYROXINE 25 MCG TAB PO SCH (05:43)
[2017-10-05] MEDS: NICOTINE 14MG/24HR PATCH TRANSDERM SCH (09:13)
[2017-10-05] MEDS: PANTOPRAZOLE 40 MG TABLET PO SCH (09:14)
[2017-10-05] MEDS: LORazepam 1 MG TAB PO PRN ×2 (09:15→21:53)
[2017-10-05 11:29] LABS: Appearance,Urine Clear (Clear); Bacteria,Urine Rare /hpf; Bilirubin,Urine Negative (Negative); Blood,Urine Small (Negative); Color,Urine Light Yellow; Glucose,Urine (UA) Negative (Negative); Ketones,Urine Negative (Negative); Leukocyte Esterase,Urine Negative (Negative); Nitrite,Urine Negative (Negative); Protein,Urine Negative (Negative); RBC,Urine 2 /hpf (0-5); Specific Gravity,Urine 1.009 (1.001-1.035); Squamous Epithelial Cell,Urine 2 /hpf (0-4); Urobilinogen,Urine <2.0 mg/dL (<2.0); WBC,Urine <1 /hpf (0-5)
--- NOTE | 2017-10-05 13:57 | P.PN ---
Progress Note - Text Progress Note Date: 10/05/17 Interval History: Patient is a 51-year-old female who was seen today, she states that she is not sleeping well at night and requested Dalmane. 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 Patient states that she not talking to herself that even though she doesn't have a cell phone she still talking to people because she is telepathic. Patient continues to request discharge because she is moving into a mansion. Mental Status: Appearance/Attitude: Patient is casually dressed, heavily applied eye makeup and lipstick outside the boundaries of her lips, makes intermittent eye contact and is cooperative Behavior: Patient does not exhibit any psychomotor agitation or retardation Speech/Language: Patient's speech is less pressured, she speaks in a normal volume and she is coherent Thought Process: Patient responds to questions in a goal-directed fashion but easily becomes tangential Thought Content: Patient denies auditory or visual hallucinations, states that she is talking on a cell phone even when she doesn't have one because she is telepathic and talking to people. She states that she is eccentric and needs to be discharged so that she can move into a mansion. She is sleeping about 2 hours a night and is requesting Dalmane. Suicidal/Homicidal Ideation: Patient denies suicidal or homicidal ideation Sensorium/Cognition: Patient is alert and oriented to person, place, and time and her recent and remote memory are grossly intact. Mood/Affect: Patient's mood remains labile at times she is quite irritable and her affect is appropriate to her mood. Insight/Judgment: Patient's insight and judgment are fair Assessment: Patient continues to sleep only 2 hours a night, continues to walk the halls and talking on an imaginary cell phone patient's mood remains labile and at times quite irritable. Patient has not received any IM Geodon and on the lower dose of Invega her blood pressure has returned to normal limits. Patient continues to request discharge because she has a lot to do to move into a mansion and states that she refuses to take lithium because she is ALLERGIC to it. Patient is requesting Dalmane to improve her sleep. Plan: Patient continue on Invega 9 mg at bedtime and Depakote 1500 mg extended release. Patient continues to refuse any augmenting agents to the current medications. Patient continues to require hospitalization to further stabilize.
[2017-10-05] MEDS: DIVALPROEX ER 500 MG TAB.ER.24H PO SCH (21:52)
[2017-10-05] MEDS: PALIPERIDONE 3 MG TAB.ER.24 PO SCH (21:52)
[2017-10-06] MEDS: LEVOTHYROXINE 25 MCG TAB PO SCH (05:55)
[2017-10-06] MEDS: PANTOPRAZOLE 40 MG TABLET PO SCH (09:36)
[2017-10-06] MEDS: NICOTINE 14MG/24HR PATCH TRANSDERM SCH (09:36)
[2017-10-06] MEDS: LORazepam 1 MG TAB PO PRN ×2 (09:37→22:57)
--- NOTE | 2017-10-06 11:48 | P.PN ---
Progress Note - Text Progress Note Date: 10/06/17 Interval History: Patient is a 51-year-old female who was seen today and she reports that she slept better last night, patient states that she is not feeling dizzy today. Patient states that she has not been attending groups. She reports that she just needs Dalmane to help her sleep at night and wonders when she will be discharged from the hospital. Patient and I discussed using long-acting injectable Invega and she declined. Mental Status: Appearance/Attitude: Patient is casually dressed, made good eye contact and was cooperative Behavior: Patient did not exhibit any psychomotor agitation or retardation. Speech/Language: Patient's speech is less pressured, normal volume and she is coherent Thought Process: Patient is goal-directed at times she becomes tangential Thought Content: Patient denies auditory or visual hallucinations, continues to discuss delusional ideation regarding living in a mansion, living next door to [place] or [place], as well as looking for [employer]. Patient continues to have difficulty sleeping at night, she states her appetite is good. Suicidal/Homicidal Ideation: Patient denies any current suicidal or homicidal ideation Sensorium/Cognition: Patient is alert and oriented to person, place, time and her recent and remote memory are grossly intact Mood/Affect: Patient's mood is labile, she is less irritable and her affect is appropriate to her mood Insight/Judgment: Patient's insight and judgment are fair Assessment: Patient continues to request discharge, continues to state that she needs Dalmane to help her sleep at night. She and I discussed the addition of lithium again today and she declined that and also declined using long-acting injectable Invega. Patient and I discussed other options to augment her current medication regimen and she declines the addition of any other medications at this time. Patient states that she is doing well she still needs Dalmane to help her sleep at night. Patient has not received any IM as needed medication and continues to take Ativan orally twice a day. Patient slept for 1 hour last night. Patient's blood pressure has returned to normal with the decrease in Invega Plan: Patient will continue on Invega 9 mg at bedtime and Depakote extended release 1500 mg at bedtime will continue to discuss with patient additional options for medication to control her mood disorder. Patient continues to require hospitalization to further stabilize her mood.
[2017-10-06] MEDS: PALIPERIDONE 3 MG TAB.ER.24 PO SCH (22:54)
[2017-10-06] MEDS: MELATONIN 3 MG TABLET PO SCH (22:54)
[2017-10-06] MEDS: DIVALPROEX ER 500 MG TAB.ER.24H PO SCH (22:54)
[2017-10-07] MEDS: LEVOTHYROXINE 25 MCG TAB PO SCH (06:08)
[2017-10-07] MEDS: NICOTINE 14MG/24HR PATCH TRANSDERM SCH (08:06)
[2017-10-07] MEDS: PANTOPRAZOLE 40 MG TABLET PO SCH (08:06)
[2017-10-07] MEDS: LORazepam 1 MG TAB PO PRN ×2 (08:43→21:18)
--- NOTE | 2017-10-07 12:51 | P.PN ---
Progress Note - Text Progress Note Date: 10/07/17 Interval History: Patient is a 51-year-old female who was seen today, patient states that she slept well last night and is documented that she slept for 7 hours. Patient states that she was not talking on the phone when I approached her in her room but was just telling herself things she needs to remember. Patient again declined changes to her medication or the addition of other medications to her Invega and Depakote. Patient questions again when she is ready for discharge, states that she needs to return to her mansion that she just purchased, she told me that Esteb[employer] Man is alive and is downstairs in the hospital and this is because [place] was destroyed by people. Mental Status: Appearance/Attitude: Patient is casually dressed, she has heavily applied makeup and makes good eye contact and is cooperative. Behavior: Patient does not display any psychomotor agitation or retardation. Speech/Language: Patient's speech is spontaneous of normal volume and rhythm and she is coherent, she is not pressured Thought Process: Patient is goal-directed but can become tangential Thought Content: Patient denies auditory or visual hallucinations and continues to express delusional ideation, stating that Esteb[employer] Man is alive and in the hospital, that she and several mansions and will be living next to [place], patient continues to discuss [employer]. Patient was able to stay in her room and sleep for 7 hours last evening Suicidal/Homicidal Ideation: Patient denies current suicidal or homicidal ideation Sensorium/Cognition: Patient is alert and oriented to person, place, and time and her recent and remote memory are grossly intact Mood/Affect: Patient's mood is labile and her affect is appropriate to her mood Insight/Judgment: Patient's insight and judgment are limited Assessment: Patient continues to exhibit delusional ideation of a grandiose nature, continues to be observed talking to an imaginary phone while she is in the [place], she slept last night for 7 hours. Patient refuses to allow any changes to her medication or the addition of lithium or other medications. Patient is able to attend groups for brief periods of time, she does spend more time in her room resting than she did before. She is eating well. Patient reports no side effects from the medication and has not received any IM injections of as needed medication. Plan: Patient continue on Invega 9 mg at bedtime and Depakote 1500 mg extended release at bedtime to target her manic symptoms. Patient continues to require hospitalization to further stabilize her mood. I have continued to discuss with the patient the addition of lithium to her current medications and she refuses to do so as well as adding any other medications.
[2017-10-07] MEDS: DIVALPROEX ER 500 MG TAB.ER.24H PO SCH (20:55)
[2017-10-07] MEDS: PALIPERIDONE 3 MG TAB.ER.24 PO SCH (20:55)
[2017-10-07] MEDS: MELATONIN 3 MG TABLET PO SCH (20:55)
[2017-10-08] MEDS: IBUPROFEN 200 MG TAB PO PRN (01:45)
[2017-10-08] MEDS: LEVOTHYROXINE 25 MCG TAB PO SCH (07:25)
[2017-10-08] MEDS: PANTOPRAZOLE 40 MG TABLET PO SCH (09:00)
[2017-10-08] MEDS: NICOTINE 14MG/24HR PATCH TRANSDERM SCH (09:00)
[2017-10-08] MEDS: LORazepam 1 MG TAB PO PRN ×2 (09:01→20:13)
--- NOTE | 2017-10-08 11:13 | P.PN ---
Progress Note - Text Interval history: The patient is found in her room she is awake resting in bed. She refuses to follow me to an interview room. She reports that she has been attending all groups 100% however she has not been attending groups this morning. It appears she had some difficulty sleeping last evening. She does not wish to participate in the interview and is dismissive. Mental status exam: The patient is alert she is lying in bed she makes no eye contact. She has a disheveled appearance. She makes delusional statements. She reports no thoughts of harming herself or others. Thought process is disorganized with spontaneous speech. Insight and judgment are impaired. She demonstrates no physical aggressiveness she demonstrates no abnormal involuntary movements. Verbally she seems agitated when questions are asked. Plan: The patient will continue on her current psychotropic medication. We will monitor for safety. Vital signs reviewed. She is encouraged to participate in the milieu.
[2017-10-08] MEDS: DIVALPROEX ER 500 MG TAB.ER.24H PO SCH (20:13)
[2017-10-08] MEDS: MELATONIN 3 MG TABLET PO SCH (20:13)
[2017-10-08] MEDS: PALIPERIDONE 3 MG TAB.ER.24 PO SCH (20:13)
[2017-10-09] MEDS: LEVOTHYROXINE 25 MCG TAB PO SCH (06:11)
[2017-10-09] MEDS: PANTOPRAZOLE 40 MG TABLET PO SCH (10:27)
[2017-10-09] MEDS: NICOTINE 14MG/24HR PATCH TRANSDERM SCH (10:27)
--- NOTE | 2017-10-09 10:36 | P.PN ---
Progress Note - Text Interval history: The patient is found in her room she refuses to speak with me in an interview room. She verbalizes a few brief responses to questions asked but then does not participate. It appears she remains compliant with her medications. Mental status exam: The patient is lying in bed in the supine position she is covered with a blanket. She demonstrates no eye contact. Speech is slow and brief. She initiates no spontaneous speech. She verbalizes no responses to questions regarding hallucinations or specific delusions. She is resting comfortably in no acute distress. She demonstrates no abnormal involuntary movements. She demonstrates no verbal or physical aggressiveness. Insight and judgment remain impaired. Plan: The patient will continue on her current psychotropic medication. We will monitor her for safety. Vital signs reviewed. She is encouraged to participate in the milieu.
[2017-10-09] MEDS: LORazepam 1 MG TAB PO PRN ×2 (10:52→19:15)
[2017-10-09] MEDS: DIVALPROEX ER 500 MG TAB.ER.24H PO SCH (20:14)
[2017-10-09] MEDS: PALIPERIDONE 3 MG TAB.ER.24 PO SCH (20:14)
[2017-10-09] MEDS: MELATONIN 3 MG TABLET PO SCH (20:14)
[2017-10-10] MEDS: NICOTINE 14MG/24HR PATCH TRANSDERM SCH (09:15)
[2017-10-10] MEDS: PANTOPRAZOLE 40 MG TABLET PO SCH (09:15)
[2017-10-10] MEDS: LEVOTHYROXINE 25 MCG TAB PO SCH (09:15)
[2017-10-10] MEDS: LORazepam 1 MG TAB PO PRN ×2 (09:16→17:39)
--- NOTE | 2017-10-10 13:49 | P.PN ---
Progress Note - Text Progress Note Date: 10/10/17 Ms. Cramer is a 51-year-old female who has a well-established diagnosis of bipolar disorder. She presented to the unit voluntarily on 2017 with signs and symptoms of acute herson. According to the admission history , she did not obtain outpatient mental health services following her last discharge from this unit in March 2017. Her current psychotropic medications include Depakote ER 1500 mg at bedtime, lorazepam 1 mg by mouth 3 times a day when necessary for anxiety/agitation, melatonin 3 mg at bedtime, Invega 9 mg at bedtime and Geodon with 10 mg IM every 6 hours when necessary for agitation. He serum valproic acid level from 10/04/2017 was 87.3 She was focused on discharge stating that she expected to be discharged today. She plans to live in the mansion that she has recently purchased. She expressed several grandiose and fragmented delusional beliefs such as that she is related to the current presidents or other famous people. She denied side effects to her current medications. She presented as a moderately obese middle-aged female who was wearing thick eye makeup. She made eye contact and appeared to attend to interview. She had a distressed facial expression. She was alert and oriented to person, place and time. She showed no abnormality of psychomotor activity. She is not restless or agitated. She had a normal and steady gait. Her speech was spontaneous, rapid, digressive and at times not fully organized. Her affect was labile and irritable. She denied suicidal ideation or wishes. She denied homicidal ideation. She denied feeling hopeless, helpless or worthless. She expressed ideas of reference and grandiose delusions. Her thinking was concrete and not organized, coherent or logical. She perseverated on grandiose themes. She denied hallucinations and did not appear to be responding to internal stimuli. Impression bipolar disorder current episode manic with psychosis Plan: She is not appropriate for discharge at this time due to the severity of her manic and psychotic symptoms. Continue current psychotropic medications and discuss transitioning from oral to long-acting Invega.
[2017-10-10] MEDS: PALIPERIDONE 3 MG TAB.ER.24 PO SCH (21:13)
[2017-10-10] MEDS: DIVALPROEX ER 500 MG TAB.ER.24H PO SCH (21:13)
[2017-10-10] MEDS: MELATONIN 3 MG TABLET PO SCH (21:14)
[2017-10-11] MEDS: LEVOTHYROXINE 25 MCG TAB PO SCH (07:14)
[2017-10-11] MEDS: NICOTINE 14MG/24HR PATCH TRANSDERM SCH (09:24)
[2017-10-11] MEDS: PANTOPRAZOLE 40 MG TABLET PO SCH (09:24)
[2017-10-11] MEDS: LORazepam 1 MG TAB PO PRN ×2 (09:24→19:49)
[2017-10-11 10:18] VITALS: BMI 32.0
--- NOTE | 2017-10-11 15:19 | P.PN ---
Progress Note - Text Progress Note Date: 10/11/17 I reviewed the medical record, interviewed the patient and discussed her treatment and treatment plan during team meeting. Her primary concern was discharge from the hospital. She approached me several times with an asked whether she will be discharged today or tomorrow. She seems satisfied with the response that she may be discharged "sometime this week." She was less preoccupied with the grandiose beliefs that she owns a mansion and is related to or is close friends with famous people. I asked her where she plans to leave and live when she leaves the hospital she responded "[address] [place] [address]." This is the address in [place] where she lived for the last 20 years. She stated that even though she is returning to "[address] [place] [address]" she still plans to visit her mansion on [address]. She denied side effects to her current medications that included lorazepam, melatonin, and Invega. She agreed to follow through with mental health services after discharge. She presented as a moderately to obese middle-aged female who was wearing thick traumatic eye makeup. She made eye contact and appeared to attend to the interview. She had no prominent physical abnormalities. She had a blunted but bright facial expression. She showed no abnormality of psychomotor activity. She had no abnormal movements. She had a normal gait. Her speech was spontaneous with normal rate, rhythm and volume. She had no articulation difficulties. Her affect was blunted but stable and appropriate. She denied suicidal ideation or wishes. She denied homicidal ideation. She did not expressed depressive cognitions such as hopelessness, helplessness or worthlessness. She expressed grandiose delusional beliefs but no ideas reference or paranoid ideation. Her thinking was concrete and her associations were not at times were not fully coherent or logical. She denied hallucinations and did not appear to be responding to internal stimuli. Impression: Bipolar disorder current episode manic with psychosis in partial remission Plan: She does not appropriate discharge this time due to the severity of her manic and psychotic symptoms. Continue Ativan 1 mg by mouth 3 times a day when necessary for anxiety or agitation, melatonin 3 mg at bedtime, Invega 9 mg at bedtime and Depakote ER 1500 mg at bedtime. Encouraged continued participation in therapeutic groups and activities. Evaluate clinical status response to treatment on a daily basis.
[2017-10-11] MEDS: DIVALPROEX ER 500 MG TAB.ER.24H PO SCH (20:58)
[2017-10-11] MEDS: MELATONIN 3 MG TABLET PO SCH (20:58)
[2017-10-11] MEDS: PALIPERIDONE 3 MG TAB.ER.24 PO SCH (20:58)
[2017-10-12] MEDS: LEVOTHYROXINE 25 MCG TAB PO SCH (07:13)
[2017-10-12] MEDS: PANTOPRAZOLE 40 MG TABLET PO SCH (08:30)
[2017-10-12] MEDS: NICOTINE 14MG/24HR PATCH TRANSDERM SCH (08:30)
[2017-10-12 08:44] VITALS: RESP 18
--- NOTE | 2017-10-12 14:16 | P.PN ---
Progress Note - Text Progress Note Date: 10/12/17 I reviewed the medical record, interviewed the patient and discussed her treatment and treatment plan during team meeting. As during prior interviews she remains focused on discharged and inquired when she would be discharged. She denied other problems or concerns. I continue to observe her walking the hallway, holding her hand to the side of her face and talking loudly as though she were talking on a mobile phone. We talked about aftercare. She gave a confusing response because she declined referral to 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. However, she would not agree to the appointment with a [facility] psychiatrist. The treatment team suspects that she is avoiding the [facility] psychiatrist because he or she wants her to receive a long- acting injectable antipsychotic medication. Nursing reports that she remains compliant with her current psychotropic medications-Depakote ER 1500 mg at bedtime and Invega 9 mg at bedtime. She is requesting and receiving lorazepam 1 mg 3 times a day. She presented as a moderately to obese middle-aged female who was wearing thick traumatic eye makeup. She made eye contact and appeared to attend to the interview. She had no prominent physical abnormalities. She had a blunted but bright facial expression. She showed no abnormality of psychomotor activity. She had no abnormal movements. Her speech was spontaneous with normal rate, rhythm and volume. She had no articulation difficulties. Her affect was blunted but stable and appropriate. She denied suicidal ideation or wishes. She denied homicidal ideation. She did not expressed depressive cognitions such as hopelessness, helplessness or worthlessness. She expressed grandiose delusional beliefs but no ideas reference or paranoid ideation. Her thinking was concrete and her associations were not at times were not fully coherent or logical. She denied hallucinations and did not appear to be responding to internal stimuli. Impression: Bipolar disorder current episode manic with psychosis in partial remission Plan: Continue inpatient hospitalization due to continued psychotic symptoms. Continue melatonin 3 mg at bedtime, Invega 9 mg at bedtime and Depakote ER 1500 mg at bedtime. discussed decreasing Ativan fromAtivan 1 mg by mouth 3 times a day prior to discharge. Encouraged continued participation in therapeutic groups and activities. Evaluate clinical status response to treatment on a daily basis.
[2017-10-12] MEDS: LORazepam 1 MG TAB PO PRN (17:12)
[2017-10-12] MEDS: PALIPERIDONE 3 MG TAB.ER.24 PO SCH (21:17)
[2017-10-12] MEDS: DIVALPROEX ER 500 MG TAB.ER.24H PO SCH (21:17)
[2017-10-12] MEDS: MELATONIN 3 MG TABLET PO SCH (21:17)
[2017-10-13] MEDS: LEVOTHYROXINE 25 MCG TAB PO SCH (05:18)
[2017-10-13 05:19] VITALS: BP 106/66; PULSE 94; TEMP 97.7
[2017-10-13] MEDS: LORazepam 1 MG TAB PO PRN ×2 (05:19→12:46)
[2017-10-13] MEDS: PANTOPRAZOLE 40 MG TABLET PO SCH (12:44)
[2017-10-13] MEDS: NICOTINE 14MG/24HR PATCH TRANSDERM SCH (12:44)
--- NOTE | 2017-10-13 13:32 | P.DS ---
Providers Date of admission: 09/27/17 02:14 Attending physician: Lorne Bonner MD Consults: 09/27/17 02:45 Consult Physician Routine Consulting Provider: Gabbie Rosen Consult Reason/Comments: medical management Do you want consulting provider notified?: Yes, Notify in am Primary care physician: Gabbie Rosen - Discharge Diagnosis(es) (1) Severe manic bipolar 1 disorder with psychotic behavior Current Visit: No Status: Chronic Priority: High Hospital Course: Chest the patient is a 51-year-old female who has history of a bipolar disorder. She [facility] the [facility] voluntarily acutely agitated. She was restless and distractible. She demonstrated pressured speech and flight of ideas. Her thinking was disorganized and illogical. She expressed multiple fragmented paranoid and grandiose delusional thoughts. She consented to resumed Depakote 1500 mg at bedtime but was resistant to resumed along acting injectable antipsychotic medication such as Abilify or to resume Seroquel. The admitting psychiatrist negotiated to became Invega and the dose was titrated during her hospitalization from 6 mg to 99 mg at bedtime. She repeatedly rejected our recommendation to transition to a long acting injectable antipsychotic medication. In addition to the psychiatric assessment she received A's psychosocial assessment by the hospital social worker and a comprehensive physical examination. Her UDS was positive only for benzodiazepines. Her serum alcohol level was less than 10. Her serum valproic acid level was less than 10 (indicating that she had not been compliant with the medication prior to admission). The director council on aging found evidence of fever, leukocytosis and tachycardia on admission without evidence of UTI. Her chest x-rays were normal. Repeat CBC was normal. The impression was that the physical signs and symptoms are related to his acute manic episode. The director council on aging continued her Synthroid 25 g daily and recommended NicoDerm for smoking cessation. She was compliant with the paliperidone and Depakote. A repeat valproic acid level on 10/04/2017 was 87.3. She participated intermittently with therapeutic groups and activities. Her confusion and restlessness gradually subsided although she continued to display periods of restlessness and appeared to be responding to internal stimuli. She remained resistant to long-acting injectable antipsychotics throughout the hospital admission. The time of discharge she was neatly groomed and pleasant on approach. She had applied makeup in a dramatic fashion with heavy eye shadow and bright lipstick. She had no prominent physical modalities. She had a bright but blunted facial expression. She was alert and oriented to person, place and time. She showed no abnormality of psychomotor activity. She had no abnormal movements. His speech was slow but with normal volume. Her affect was blunted , stable and appropriate. She denied suicidal ideation or wishes. She denied homicidal ideation. She denied feeling hopeless, helpless or worthless. She did not express ideas reference or paranoid ideation. She maintained a fixed chronic delusion that she is wealthy, related to a famous people and owns a mansion. She denied hallucinations and did not appear to responding to internal stimuli. Patient Condition at Discharge: Stable Plan - Discharge Summary Discharge Rx Participant: No New Discharge Prescriptions: New Melatonin 3 mg PO HS #30 tablet Nicotine 14Mg/24Hr Patch [Habitrol] 1 patch TRANSDERM DAILY #7 patch Paliperidone [Invega] 9 mg PO HS #30 tab.er.24 Continue Levothyroxine Sodium [Synthroid] 25 mcg PO DAILY Esomeprazole Magnesium [NexIUM] 40 mg PO DAILY Divalproex ER [Depakote ER] 1,500 mg PO HS #90 tab.er.24h Discontinued ARIPiprazole IM [Abilify Maintena] 400 mg IM QMONTH #1 vial QUEtiapine [SEROquel] 100 mg PO 0900,1600 #60 tab QUEtiapine [SEROquel] 400 mg PO HS #30 tab LORazepam [Ativan] 2 mg PO TID FLUoxetine HCL [PROzac] 20 mg PO BID Diazepam [Valium] 10 mg PO HS PRN PRN Reason: Anxiety HYDROcodone/APAP 10-325MG [[place] 10-325] 1 tab PO Q6H PRN PRN Reason: Pain Discharge Medication List Levothyroxine Sodium [Synthroid] 25 mcg PO DAILY 04/15/17 [History] Esomeprazole Magnesium [NexIUM] 40 mg PO DAILY 09/26/17 [History] Divalproex ER [Depakote ER] 1,500 mg PO HS #90 tab.er.24h 10/13/17 [Rx] Melatonin 3 mg PO HS #30 tablet 10/13/17 [Rx] Nicotine 14Mg/24Hr Patch [Habitrol] 1 patch TRANSDERM DAILY #7 patch 10/13/17 [ Rx] Paliperidone [Invega] 9 mg PO HS #30 tab.er.24 10/13/17 [Rx] Follow up Appointment(s)/Referral(s): Gabbie Rosen MD [Primary Care Provider] - 1-2 days Patient Instructions/Handouts: Bipolar Disorder (DC) Activity/Diet/Wound Care/Special Instructions: Activity and diet as tolerated. Avoid the use of street drugs and alcohol. Remove all firearms from home. Take all medications as prescribed. When you are in need of refills of your medication please contact your medical provider and/ or outpatient psychiatrist to have this done. Please go to scheduled outpatient appointment for aftercare. If symptoms return or become worse you can call the Crisis Line at and/or go to the nearest emergency room for an evaluation. Discharge Disposition: HOME SELF-CARE
== END 2017-10-13 14:58 | disposition home or self-care (01) | DRG 885 ==
LOC: EC 22:13 → 3MHU 09-27 02:14
PROVIDERS: ADMIT Psychiatry & Neurology Psychiatry; ATTEND Psychiatry & Neurology Psychiatry
DX: F31.2 Bipolar disorder, current episode manic severe with psychotic features (principal); Z91.19 Patient's noncompliance with other medical treatment and regimen; D72.829 Elevated white blood cell count, unspecified; E03.9 Hypothyroidism, unspecified; K21.9 Gastro-esophageal reflux disease without esophagitis; E87.6 Hypokalemia; G47.9 Sleep disorder, unspecified; R45.1 Restlessness and agitation; R45.86 Emotional lability; R50.9 Fever, unspecified; F41.9 Anxiety disorder, unspecified; E66.9 Obesity, unspecified; Z68.32 Body mass index [BMI] 32.0-32.9, adult; M54.9 Dorsalgia, unspecified; F17.210 Nicotine dependence, cigarettes, uncomplicated; Z71.6 Tobacco abuse counseling; Z53.20 Procedure and treatment not carried out because of patient's decision for unspecified reasons; Z79.890 Hormone replacement therapy; Z79.899 Other long term (current) drug therapy; Z88.5 Allergy status to narcotic agent
CPT/HCPCS: 36415; 80053; 80164; 80306; 80320; 81001; 82075; 85025; 99285

== ENCOUNTER 2017-11-03 13:10 | Inpatient (IN) | payer MEDICARE ==
--- NOTE | 2017-11-03 14:03 | ED ---
General Adult HPI - General Chief complaint: Psychiatric Symptoms Stated complaint: Mental Health Time Seen by Provider: 11/03/17 13:37 Source: patient, RN notes reviewed Mode of arrival: ambulatory Limitations: no limitations - History of Present Illness Initial comments: Patient is a 51-year-old female presenting to the emergency department stating she is here to check herself in. Patient states she has a history of bipolar and this is acting up. Patient is mostly noncooperative to answering questions and following commands. Patient will do some when prompted multiple times. Patient is agitated regarding this. On presentation patient originally refused to provide basic background information including name. Patient admits to having anger issues and thoughts of harming others. No thoughts of self-harm. Patient denies alcohol or street drug use. Patient denies hallucinations are new physical complaints. Patient does request Ativan shot for her chronic pain. - Related Data Home Medications Medication Instructions Recorded Confirmed Levothyroxine Sodium [Synthroid] 25 mcg PO DAILY 04/15/17 09/27/17 Esomeprazole Magnesium [NexIUM] 40 mg PO DAILY 09/26/17 09/27/17 Divalproex ER [Depakote ER] 1,500 mg PO HS 11/03/17 11/03/17 LORazepam [Ativan] 2 mg PO TID 11/03/17 11/03/17 Levothyroxine Sodium [Synthroid] 25 mcg PO DAILY 11/03/17 11/03/17 Melatonin 3 mg PO HS 11/03/17 11/03/17 Omeprazole 20 mg PO DAILY 11/03/17 11/03/17 Paliperidone [Invega] 9 mg PO HS 11/03/17 11/03/17 traMADol HCL [Ultram] 50 mg PO Q8HR PRN 11/03/17 11/03/17 Previous Rx's Medication Instructions Recorded Divalproex ER [Depakote ER] 1,500 mg PO HS #90 tab.er.24h 10/13/17 Melatonin 3 mg PO HS #30 tablet 10/13/17 Nicotine 14Mg/24Hr Patch [Habitrol] 1 patch TRANSDERM DAILY #7 patch 10/13/17 Paliperidone [Invega] 9 mg PO HS #30 tab.er.24 10/13/17 Allergies Allergy/AdvReac Type Severity Reaction Status Date / Time codeine AdvReac Itching Verified 09/27/17 04:58 Review of Systems ROS Statement: Those systems with pertinent positive or pertinent negative responses have been documented in the HPI. ROS Other: All systems not noted in ROS Statement are negative. Constitutional: Denies: fever Eyes: Denies: eye pain ENT: Denies: ear pain Respiratory: Denies: cough Cardiovascular: Denies: as per HPI Endocrine: Denies: fatigue Gastrointestinal: Denies: abdominal pain Genitourinary: Denies: dysuria Musculoskeletal: Denies: myalgia Skin: Denies: rash Psychiatric: Denies: auditory hallucinations, visual hallucinations Past Medical History Past Medical History: No Reported History History of Any Multi-Drug Resistant Organisms: None Reported Past Surgical History: No Surgical Hx Reported Past Psychological History: No Psychological Hx Reported Smoking Status: Never smoker Past Alcohol Use History: None Reported Past Drug Use History: None Reported General Exam Limitations: no limitations General appearance: alert, in no apparent distress Head exam: Present: atraumatic Eye exam: Present: normal appearance Respiratory exam: Present: normal lung sounds bilaterally Cardiovascular Exam: Present: regular rate, normal rhythm GI/Abdominal exam: Present: soft. Absent: tenderness Extremities exam: Present: normal inspection Neurological exam: Present: alert. Absent: motor sensory deficit Psychiatric exam: Present: agitated Skin exam: Present: normal color Course Vital Signs 11/03/17 13:15 Temperature 98.6 F Pulse Rate 95 Respiratory 16 Rate Blood Pressure 100/52 O2 Sat by Pulse 99 Oximetry Disposition Clinical Impression: Bipolar disorder Disposition: TRANSFER TO PSYCH HOSP/UNIT Is patient prescribed a controlled substance at d/c from ED?: No
[2017-11-03] MEDS ORDERED: ZIPRASIDONE 20 MG VIAL IM PRN (18:12)
[2017-11-03] MEDS ORDERED: MAGNESIUM HYDROXIDE 2,400 MG/10 ML CUP PO PRN (18:12)
[2017-11-03] MEDS ORDERED: ACETAMINOPHEN TAB 325 MG TAB PO PRN (18:12)
[2017-11-03] MEDS ORDERED: MAG HYDROX/AL HYDROX/SIMETH 30 ML CUP PO PRN (18:12)
[2017-11-03] MEDS ORDERED: LORazepam 2 MG/ML INJ IM PRN (18:17)
[2017-11-03] MEDS: NICOTINE 21MG/24HR PATCH TRANSDERM SCH (18:51)
[2017-11-03] MEDS: PALIPERIDONE 3 MG TAB.ER.24 PO SCH (20:57)
[2017-11-03] MEDS: DIVALPROEX ER 500 MG TAB.ER.24H PO SCH (20:57)
[2017-11-03] MEDS: MELATONIN 3 MG TABLET PO SCH (20:57)
[2017-11-03] MEDS: LORazepam 1 MG TAB PO PRN (20:58)
[2017-11-04] MEDS: NICOTINE 21MG/24HR PATCH TRANSDERM SCH (08:21)
[2017-11-04] MEDS: LEVOTHYROXINE 25 MCG TAB PO SCH (08:21)
[2017-11-04] MEDS: PANTOPRAZOLE 40 MG TABLET PO SCH (08:21)
--- NOTE | 2017-11-04 10:06 | P.CONS ---
History of Present Illness - Reason for Consult Consult date: 11/04/17 Medical management Requesting physician: Lorne Bonner - Chief Complaint Psychosis - History of Present Illness This is a 51-year-old female with a known past medical history of hypothyroidism , bipolar and recent psychiatric admission. Information was taken per ER chart. Patient is currently sleeping comfortably in the psychiatric unit. She is arousable. But is non-cooperative with answering questions or completing a physical exam. Per ER report patient presented to to the ER with stating that her bipolar was acting up. Patient had reported that she has anger issues and thoughts of harming others. And no thoughts of self-harm. Patient had denied any alcohol or street drug use. Patient had denied any hallucinations or any new physical complaints. She had requested Ativan for her chronic back pain. We have been consulted for medical management. Routine labs are still pending. Review of Systems Please refer to HPI otherwise unremarkable Past Medical History Past Medical History: No Reported History History of Any Multi-Drug Resistant Organisms: None Reported Past Surgical History: No Surgical Hx Reported Past Psychological History: No Psychological Hx Reported Smoking Status: Never smoker Past Alcohol Use History: None Reported Past Drug Use History: None Reported Medications and Allergies Home Medications Medication Instructions Recorded Confirmed Type Divalproex ER [Depakote ER] 1,500 mg PO HS 11/03/17 11/03/17 History LORazepam [Ativan] 2 mg PO TID 11/03/17 11/03/17 History Levothyroxine Sodium [Synthroid] 25 mcg PO DAILY 11/03/17 11/03/17 History Melatonin 3 mg PO HS 11/03/17 11/03/17 History Omeprazole 20 mg PO DAILY 11/03/17 11/03/17 History Paliperidone [Invega] 9 mg PO HS 11/03/17 11/03/17 History traMADol HCL [Ultram] 50 mg PO Q8HR PRN 11/03/17 11/03/17 History Allergies Allergy/AdvReac Type Severity Reaction Status Date / Time No Known Allergies Allergy Unverified 11/03/17 13:49 Physical Exam Vitals: Vital Signs Temp Pulse Pulse Pulse Resp BP BP 11/04/17 08:20 85 16 11/03/17 21:00 84 16 121/62 11/03/17 18:00 97.7 F 97 16 117/71 11/03/17 17:45 97.8 F 87 16 115/75 11/03/17 13:15 98.6 F 95 16 100/52 BP Pulse Ox 11/04/17 08:20 116/78 96 11/03/17 21:00 11/03/17 18:00 11/03/17 17:45 98 11/03/17 13:15 99 Patient refused to have a physical exam completed Assessment and Plan Assessment: 1. Bipolar with evidence of psychosis. Patient has been admitted to the psychiatric unit. Patient's Depakote has been resumed continue with the Geodon and Ativan as needed. Continue with current psychiatric care 2. Hypothyroidism: Resume Synthroid. And awaiting TSH results 3. Nicotine dependence continue nicotine patch Thank you for this consultation. We'll follow as needed. Please call with any questions or concerns. Time with Patient: Greater than 30 (Greater than 60% of the total time spent in counseling and coordination of care.I performed an examination of the patient and discussed their management with the physician [employer] Order Filler. I have reviewed the Physician [employer] Order Filler's notes and agree with the documented findings and plan of care)
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
[2017-11-04] MEDS: LORazepam 1 MG TAB PO PRN (15:22)
[2017-11-04] MEDS: DIVALPROEX ER 500 MG TAB.ER.24H PO SCH (21:33)
[2017-11-04] MEDS: MELATONIN 3 MG TABLET PO SCH (21:33)
[2017-11-04] MEDS: PALIPERIDONE 3 MG TAB.ER.24 PO SCH (21:33)
[2017-11-05] MEDS: LEVOTHYROXINE 25 MCG TAB PO SCH (05:57)
[2017-11-05] MEDS: PANTOPRAZOLE 40 MG TABLET PO SCH (09:27)
[2017-11-05] MEDS: NICOTINE 21MG/24HR PATCH TRANSDERM SCH (09:27)
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
[2017-11-05] MEDS: LORazepam 1 MG TAB PO PRN ×2 (13:16→20:55)
[2017-11-05] MEDS: MELATONIN 3 MG TABLET PO SCH (20:55)
[2017-11-05] MEDS: PALIPERIDONE 3 MG TAB.ER.24 PO SCH (20:56)
[2017-11-05] MEDS: DIVALPROEX ER 500 MG TAB.ER.24H PO SCH (20:56)
[2017-11-06] MEDS: NICOTINE 21MG/24HR PATCH TRANSDERM SCH (09:04)
[2017-11-06] MEDS: PANTOPRAZOLE 40 MG TABLET PO SCH (09:04)
[2017-11-06] MEDS: LORazepam 1 MG TAB PO PRN (09:06)
[2017-11-06] MEDS: LEVOTHYROXINE 25 MCG TAB PO SCH (09:21)
--- NOTE | 2017-11-06 12:10 | P.PN ---
Progress Note - Text Interval history: The patient is found in her room she has been isolating there most of the morning. Upon approach she can be heard talking loudly to herself as there was no one else in the room. She does follow me to an interview room. She states that she is here just to get some sleep as she was feeling tired. She has been compliant with the invega and Depakote. She has no questions regarding her psychotropic medication. For the most part she has been staying in her room this morning. Mental status exam: The patient is an overweight female she is dressed in her own clothing she has excessive makeup on. She reports her mood is good she denies having any suicidal or homicidal ideation intent or plan. She demonstrates no verbal or physical aggressiveness. She does spontaneously describes some delusional thoughts. She has grandiose thinking. She also states that her roommate is Jodie's brother. Insight and judgment are limited. She does have some tangential thinking no flight of ideas or loose associations during this session. She is oriented to person place and date. She does have spontaneous speech and she is verbose but is directable. Plan: The patient will continue on her current psychotropic medications we will monitor for safety and encourage participation in the milieu. Vital signs reviewed. She requires continued psychiatric hospitalization at this time.
[2017-11-06] MEDS: DIVALPROEX ER 500 MG TAB.ER.24H PO SCH (21:44)
[2017-11-06] MEDS: MELATONIN 3 MG TABLET PO SCH (21:44)
[2017-11-06] MEDS: PALIPERIDONE 3 MG TAB.ER.24 PO SCH (21:44)
[2017-11-07] MEDS: LORazepam 1 MG TAB PO PRN ×3 (00:21→20:14)
[2017-11-07 05:49] VITALS: TEMP 98.1
[2017-11-07] MEDS: LEVOTHYROXINE 25 MCG TAB PO SCH (06:09)
[2017-11-07] MEDS: PANTOPRAZOLE 40 MG TABLET PO SCH ×2 (11:08→13:44)
[2017-11-07] MEDS: NICOTINE 21MG/24HR PATCH TRANSDERM SCH ×2 (11:08→13:44)
--- NOTE | 2017-11-07 13:57 | P.PN ---
Subjective Progress Note Date: 11/07/17 Principal diagnosis: Bipolar disorder severe manic with psychotic features, poor compliance with mental health care I reviewed the medical record, attempted to interview the patient and discussed her treatment and treatment plan during team meeting. She would not cooperate with the interview. She would not get out of bed or make eye contact. She answered a few questions with terse "yes" and "no" and then pulled the covers over her head. According to the MAR she has been compliant with prescribed psychotropic medications-Depakote 1500 mg at bedtime, melatonin 3 mg at bedtime and paliperidone 9 mg at bedtime. She is posed no management problem and required no emergency medications for behavioral dyscontrol. Objective - Vital Signs Vital signs: Vital Signs Temp 98.1 F 11/07/17 00:19 Pulse 108 H 11/07/17 00:19 Resp 14 11/07/17 00:19 BP 116/74 11/07/17 00:19 Pulse Ox 96 11/04/17 08:20 - Psychiatric Psychiatric Comment(s): She presented as a pale, stocky and somewhat unkept 51-year-old female here she does not make eye contact and did not appear to attend to the interview. She had an angry facial expression. She showed no abnormality of psychomotor activity. Her speech was not spontaneous. Her affect was angry and irritable. She did not express suicidal ideation, wishes or homicidal ideation. She did not express such psychotic symptoms as ideas reference, paranoid ideation or delusional thoughts. She did not talk enough to fully assess her thought process. She did not appear to be responding to internal stimuli. Assessment and Plan Assessment: Overall, She is markedly mentally ill and minimally improve from admission. (1) Bipolar disorder Current Visit: Yes Status: Acute Code(s): F31.9 - BIPOLAR DISORDER, UNSPECIFIED SNOMED Code(s): 49863571 (2) Poor compliance with medication Current Visit: Yes Status: Chronic Priority: High Code(s): Z91.14 - PATIENT'S OTHER NONCOMPLIANCE WITH MEDICATION REGIMEN SNOMED Code(s): 817255345 Plan: Continue inpatient psychiatric hospitalization due to the severity of mental illness. Completed the second clinical certificate for her Alternative Outpatient Treatment order; her hearing is scheduled for November 11 at 9 AM. Continue Depakote 1500 mg at bedtime, Invega 9 mg at bedtime and melatonin 3 mg at bedtime. Continue to monitor for safety. Encourage participation in therapeutic groups and activities. Evaluate clinical status response to treatment on a daily basis.
[2017-11-07] MEDS: MELATONIN 3 MG TABLET PO SCH (20:12)
[2017-11-07] MEDS: DIVALPROEX ER 500 MG TAB.ER.24H PO SCH (20:12)
[2017-11-07] MEDS: PALIPERIDONE 3 MG TAB.ER.24 PO SCH (20:12)
[2017-11-08] MEDS: LEVOTHYROXINE 25 MCG TAB PO SCH (05:31)
[2017-11-08] MEDS: PANTOPRAZOLE 40 MG TABLET PO SCH (09:01)
[2017-11-08] MEDS: NICOTINE 21MG/24HR PATCH TRANSDERM SCH (09:01)
--- NOTE | 2017-11-08 14:42 | P.PN ---
Subjective Progress Note Date: 11/08/17 Principal diagnosis: Bipolar disorder severe manic with psychotic features, poor compliance with mental health care I reviewed the medical record, attempted to interview the patient and discussed her treatment and treatment plan during team meeting. She was irritable and uncooperative. She denied problems or concerns. She instructed me to close the door and leave her room. According to the MAR she has been compliant with prescribed psychotropic medications-Depakote 1500 mg at bedtime, melatonin 3 mg at bedtime and paliperidone 9 mg at bedtime. She is posed no management problem and required no emergency medications for behavioral dyscontrol. Objective - Vital Signs Vital signs: Vital Signs Temp 98.1 F 11/07/17 00:19 Pulse 108 H 11/07/17 00:19 Resp 14 11/07/17 00:19 BP 116/74 11/07/17 00:19 Pulse Ox 96 11/04/17 08:20 - Psychiatric Psychiatric Comment(s): She presented as a pale, stocky and somewhat unkept 51-year-old female who does not make eye contact. She had an angry facial expression. She showed no abnormality of psychomotor activity. Her speech was not spontaneous. Her affect was angry and irritable. She did not express suicidal ideation, wishes or homicidal ideation. She did not express such psychotic symptoms as ideas reference, paranoid ideation or delusional thoughts. She did not talk enough to fully assess her thought process. She did not appear to be responding to internal stimuli. - Labs Labs: She continues to refuse blood draws. Assessment and Plan Assessment: Overall, She is moderately mentally ill and moderately improve from admission. (1) Bipolar disorder Current Visit: Yes Status: Acute Code(s): F31.9 - BIPOLAR DISORDER, UNSPECIFIED SNOMED Code(s): 80663479 (2) Poor compliance with medication Current Visit: Yes Status: Chronic Priority: High Code(s): Z91.14 - PATIENT'S OTHER NONCOMPLIANCE WITH MEDICATION REGIMEN SNOMED Code(s): 441449167 Plan: Continue inpatient psychiatric hospitalization due to the severity of mental illness. Probate hearing scheduled for November 11 at 9 AM. Continue Depakote 1500 mg at bedtime, Invega 9 mg at bedtime and melatonin 3 mg at bedtime. Continue to monitor for safety. Encourage participation in therapeutic groups and activities. Evaluate clinical status response to treatment on a daily basis.
[2017-11-08] MEDS: MELATONIN 3 MG TABLET PO SCH (21:06)
[2017-11-08] MEDS: DIVALPROEX ER 500 MG TAB.ER.24H PO SCH (21:06)
[2017-11-08] MEDS: PALIPERIDONE 3 MG TAB.ER.24 PO SCH (21:06)
[2017-11-08] MEDS: LORazepam 1 MG TAB PO PRN (21:07)
[2017-11-09] MEDS: LEVOTHYROXINE 25 MCG TAB PO SCH (06:44)
[2017-11-09] MEDS: PANTOPRAZOLE 40 MG TABLET PO SCH (08:25)
[2017-11-09] MEDS: NICOTINE 21MG/24HR PATCH TRANSDERM SCH (08:25)
[2017-11-09] MEDS: LORazepam 1 MG TAB PO PRN ×2 (08:26→20:58)
[2017-11-09 09:36] VITALS: RESP 18
--- NOTE | 2017-11-09 12:50 | P.PN ---
Subjective Progress Note Date: 11/09/17 Principal diagnosis: Bipolar disorder severe manic with psychotic features, poor compliance with mental health care I reviewed the medical record, attempted to interview the patient and discussed her treatment and treatment plan during team meeting. She was irritable and uncooperative. She mumbled answers to questions and refused to get out of bed for the interview. Nursing reported that she does not sleep at night. She is in her room holding her hand to the side of the face and talking quietly to herself as though she were talking a telephone. She is guarded and suspicious about this activity. She is refusing to allow blood draws. She does not participate in therapeutic groups or activities. She does not interact with peers or staff. She sleep yesterday coming out only for meals. She remains compliant with prescribed psychotropic medications-Depakote 1500 mg at bedtime, melatonin 3 mg at bedtime and paliperidone 9 mg at bedtime. She is posed no management problem and required no emergency medications for behavioral dyscontrol. Objective - Vital Signs Vital signs: Vital Signs Temp 98.1 F 11/07/17 00:19 Pulse 108 H 11/07/17 00:19 Resp 14 11/07/17 00:19 BP 116/74 11/07/17 00:19 Pulse Ox 96 11/04/17 08:20 - Psychiatric Psychiatric Comment(s): She presented as a pale, stocky and unkept 51-year-old female who does not make eye contact. She had an angry facial expression. She showed no abnormality of psychomotor activity. Her speech was not spontaneous. She was guarded and suspicious. She did not express suicidal ideation, wishes or homicidal ideation. She did not appear to be responding to internal stimuli during our encounters. She refused to answer questions about such psychotic symptoms as auditory, visual or olfactory hallucinations, ideas reference, thought insertion etc. She did not talk enough to fully assess her thought process. Assessment and Plan Assessment: She remains paranoid, angry and uncooperative. She has a reverse sleep schedule and her psychotic symptoms are observable at nighttime. (1) Bipolar disorder Current Visit: Yes Status: Acute Code(s): F31.9 - BIPOLAR DISORDER, UNSPECIFIED SNOMED Code(s): 32438419 (2) Poor compliance with medication Current Visit: Yes Status: Chronic Priority: High Code(s): Z91.14 - PATIENT'S OTHER NONCOMPLIANCE WITH MEDICATION REGIMEN SNOMED Code(s): 732271696 Plan: Continue inpatient psychiatric hospitalization due to the severity of mental illness. Probate hearing scheduled for November 11 at 9 AM. Continue Depakote 1500 mg at bedtime, Invega 9 mg at bedtime and melatonin 3 mg at bedtime. Her last laboratory to try to obtain a sample with Depakote level and admission laboratories. Continue to monitor for safety. Encourage participation in therapeutic groups and activities. Evaluate clinical status response to treatment on a daily basis.
[2017-11-09] MEDS: DIVALPROEX ER 500 MG TAB.ER.24H PO SCH (20:57)
[2017-11-09] MEDS: MELATONIN 3 MG TABLET PO SCH (20:57)
[2017-11-09] MEDS: PALIPERIDONE 3 MG TAB.ER.24 PO SCH (20:57)
[2017-11-10] MEDS: LORazepam 1 MG TAB PO PRN ×2 (04:53→15:58)
[2017-11-10] MEDS: LEVOTHYROXINE 25 MCG TAB PO SCH (06:03)
[2017-11-10] MEDS: NICOTINE 21MG/24HR PATCH TRANSDERM SCH (09:43)
[2017-11-10] MEDS: PANTOPRAZOLE 40 MG TABLET PO SCH (09:43)
--- NOTE | 2017-11-10 14:39 | P.PN ---
Subjective Progress Note Date: 11/10/17 Principal diagnosis: Bipolar disorder severe manic with psychotic features, poor compliance with mental health care I reviewed the medical record, attempted to interview the patient and discussed her treatment and treatment plan during team meeting. She remains irritable and uncooperative. She refused to get out of bed for the interview. Standing outside her room I could hear her through the closed door talking loudly. When I entered the room she was holding her hand to the side of her head as though she were talking a telephone and speaking loudly. She withdrew her hand from inside her head to tell me she does not want to speak with me and ordered me to leave her room. She then return to her hand to the side of her head and began mumbling into her hand. She continues to refuse to allow blood draws. She does not participate in therapeutic groups or activities. She does not interact with peers or staff. She comes out of her room only for meals. Nursing staff reported that she is dressing inappropriately and provocatively. She remains compliant with prescribed psychotropic medications-Depakote 1500 mg at bedtime, melatonin 3 mg at bedtime and paliperidone 9 mg at bedtime. She has posed no management problem and required no emergent medications for behavioral dyscontrol. Objective - Vital Signs Vital signs: Vital Signs Temp 98.1 F 11/07/17 00:19 Pulse 94 11/09/17 08:25 Resp 18 11/09/17 08:25 BP 107/61 11/09/17 08:25 Pulse Ox 96 11/04/17 08:20 - Psychiatric Psychiatric Comment(s): She presented as a pale, stocky and unkept 51-year-old female who does not make eye contact. She had an angry facial expression. She showed no abnormality of psychomotor activity. Her speech was not spontaneous. She was irritable, guarded and suspicious. She did not express suicidal ideation, wishes or homicidal ideation. She appeared to be responding to internal stimuli during. She refused to answer questions. She did not talk enough to fully assess her thought process. Assessment and Plan Assessment: She remains irritable, paranoid, angry and uncooperative. She She has obvious psychotic symptoms. (1) Bipolar disorder Current Visit: Yes Status: Acute Code(s): F31.9 - BIPOLAR DISORDER, UNSPECIFIED SNOMED Code(s): 58509132 (2) Poor compliance with medication Current Visit: Yes Status: Chronic Priority: High Code(s): Z91.14 - PATIENT'S OTHER NONCOMPLIANCE WITH MEDICATION REGIMEN SNOMED Code(s): 648935887 Plan: Continue inpatient psychiatric hospitalization due to the severity of mental illness. Probate hearing scheduled for November 11 at 9 AM. Continue Depakote 1500 mg at bedtime, Invega 9 mg at bedtime and melatonin 3 mg at bedtime. Her last laboratory to try to obtain a sample with Depakote level and admission laboratories. Continue to monitor for safety. Encourage participation in therapeutic groups and activities. Evaluate clinical status response to treatment on a daily basis.
[2017-11-10] MEDS: PALIPERIDONE 3 MG TAB.ER.24 PO SCH ×3 (21:55→22:20)
[2017-11-10] MEDS: MELATONIN 3 MG TABLET PO SCH ×2 (21:55→22:17)
[2017-11-10] MEDS: DIVALPROEX ER 500 MG TAB.ER.24H PO SCH ×2 (21:55→22:17)
[2017-11-11] MEDS: LEVOTHYROXINE 25 MCG TAB PO SCH (06:56)
[2017-11-11] MEDS: PANTOPRAZOLE 40 MG TABLET PO SCH (08:40)
[2017-11-11] MEDS: NICOTINE 21MG/24HR PATCH TRANSDERM SCH (08:40)
--- NOTE | 2017-11-11 16:35 | P.PN ---
Subjective Progress Note Date: 11/11/17 Principal diagnosis: Bipolar disorder severe manic with psychotic features, poor compliance with mental health care I reviewed the medical record, attempted to interview the patient and discussed her treatment and treatment plan during team meeting. She remains irritable and uncooperative. As she is done every day this week she refused to get out of bed for the interview. I attempted to interview her several times today. In the afternoon, I heard again talking loudly in her room behind the closed door. When I went inside she stopped talking. I told her that I heard her speaking loudly. She replied that she was "speaking to no one." She made a disjointed statement something to the effect that she was translating some document from [place] to [place]. When I commented that I did note that she spoke [place] she replied that she speaks every language. She has a doctor's degree in every subject. She continues to refuse to allow blood draws. She does not participate in therapeutic groups or activities. She does not interact with peers or staff. She comes out of her room only for meals. She remains compliant with prescribed psychotropic medications-Depakote 1500 mg at bedtime, melatonin 3 mg at bedtime and paliperidone 9 mg at bedtime. She has posed no management problem and required no emergent medications for behavioral dyscontrol. Objective - Vital Signs Vital signs: Vital Signs Temp 98.1 F 11/07/17 00:19 Pulse 94 11/09/17 08:25 Resp 18 11/09/17 08:25 BP 107/61 11/09/17 08:25 Pulse Ox 96 11/04/17 08:20 - Psychiatric Psychiatric Comment(s): She presented as a pale, stocky and unkept 51-year-old female who irritable and angry. She had an angry facial expression. She showed no abnormality of psychomotor activity. Her speech was not spontaneous. She was irritable, guarded and suspicious. She did not express suicidal ideation, wishes or homicidal ideation. She expressed grandiose delusional beliefs. She appears to be responding to internal stimuli. She refused to answer most questions. Her thinking is disorganized and illogical. Assessment and Plan Assessment: She remains irritable, paranoid, angry and uncooperative. She has obvious psychotic symptoms. (1) Bipolar disorder Current Visit: Yes Status: Acute Code(s): F31.9 - BIPOLAR DISORDER, UNSPECIFIED SNOMED Code(s): 13486539 (2) Poor compliance with medication Current Visit: Yes Status: Chronic Priority: High Code(s): Z91.14 - PATIENT'S OTHER NONCOMPLIANCE WITH MEDICATION REGIMEN SNOMED Code(s): 151088237 Plan: Continue inpatient psychiatric hospitalization due to the severity of mental illness. The probate hearing was rescheduled for 11/18/2017 because her workers compensation defense attorney was not able to interview her. Continue Depakote 1500 mg at bedtime, Invega 9 mg at bedtime and melatonin 3 mg at bedtime. Obtain a Depakote level and admission laboratories when she becomes less psychotic. Continue to monitor for safety. Encourage participation in therapeutic groups and activities. Evaluate clinical status response to treatment on a daily basis.
[2017-11-11] MEDS: DIVALPROEX ER 500 MG TAB.ER.24H PO SCH (20:00)
[2017-11-11] MEDS: MELATONIN 3 MG TABLET PO SCH (20:00)
[2017-11-11] MEDS: LORazepam 1 MG TAB PO PRN (20:05)
[2017-11-12] MEDS: LEVOTHYROXINE 25 MCG TAB PO SCH (05:29)
[2017-11-12] MEDS: LORazepam 1 MG TAB PO PRN ×3 (05:30→20:07)
[2017-11-12] MEDS: PANTOPRAZOLE 40 MG TABLET PO SCH ×2 (09:36→12:52)
[2017-11-12] MEDS: NICOTINE 21MG/24HR PATCH TRANSDERM SCH ×2 (09:36→12:52)
--- NOTE | 2017-11-12 10:43 | P.PN ---
Subjective Progress Note Date: 11/12/17 Principal diagnosis: Bipolar disorder severe manic with psychotic features, poor compliance with mental health care I reviewed the medical record and attempted to interview the patient. She remains irritable and uncooperative. As she is done every day this week she refused to get out of bed for the interview. Today, she denied concerns or problems. She denied that she felt sedated from her medications. I asked her if she was aware that [facility] had filed a petition for involuntary treatment. She mumbled and answered that I could not understand. She would would not elaborate on her answers. She abruptly turned away and pretended to snore. She continues to refuse to allow blood draws. She does not participate in therapeutic groups or activities. She does not interact with peers or staff. She comes out of her room only for meals. She remains compliant with prescribed psychotropic medications-Depakote 1500 mg at bedtime, melatonin 3 mg at bedtime and paliperidone 9 mg at bedtime. She has posed no management problem and required no emergent medications for behavioral dyscontrol. Objective - Vital Signs Vital signs: Vital Signs Temp 98.1 F 11/07/17 00:19 Pulse 94 11/09/17 08:25 Resp 18 11/09/17 08:25 BP 107/61 11/09/17 08:25 Pulse Ox 96 11/04/17 08:20 - Psychiatric Psychiatric Comment(s): She presented tasks a pale disheveled appearing woman who was disagreeable, irritable and uncooperative. She would not get out of bed for the interview. She would not make eye contact. However, she was not talking to herself and did not appear to be responding to internal stimuli. Assessment and Plan Assessment: She remains irritable, paranoid, angry and uncooperative. She remains compliant with prescribed medications. Her probate her for involuntary mental health treatment is pending. (1) Bipolar disorder Current Visit: Yes Status: Acute Code(s): F31.9 - BIPOLAR DISORDER, UNSPECIFIED SNOMED Code(s): 41698968 (2) Poor compliance with medication Current Visit: Yes Status: Chronic Priority: High Code(s): Z91.14 - PATIENT'S OTHER NONCOMPLIANCE WITH MEDICATION REGIMEN SNOMED Code(s): 358591713 Plan: Continue inpatient psychiatric hospitalization due to the severity of mental illness. The probate hearing was rescheduled for 11/18/2017 because her trial attorney was not able to interview her. Continue Depakote 1500 mg at bedtime, Invega 9 mg at bedtime and melatonin 3 mg at bedtime. Obtain a Depakote level and admission laboratories when she becomes less psychotic. Continue to monitor for safety. Encourage participation in therapeutic groups and activities. Evaluate clinical status response to treatment on a daily basis.
[2017-11-12] MEDS: DIVALPROEX ER 500 MG TAB.ER.24H PO SCH (20:06)
[2017-11-12] MEDS: MELATONIN 3 MG TABLET PO SCH (20:07)
[2017-11-12] MEDS: PALIPERIDONE 3 MG TAB.ER.24 PO SCH (20:07)
[2017-11-13] MEDS: LEVOTHYROXINE 25 MCG TAB PO SCH (06:29)
[2017-11-13] MEDS: PANTOPRAZOLE 40 MG TABLET PO SCH (09:18)
[2017-11-13] MEDS: NICOTINE 21MG/24HR PATCH TRANSDERM SCH (10:46)
--- NOTE | 2017-11-13 11:40 | P.PN ---
Subjective Progress Note Date: 11/13/17 Principal diagnosis: Bipolar disorder severe manic with psychotic features, poor compliance with mental health care I reviewed the medical record and attempted to interview the patient. She remains irritable and uncooperative. As she is done every day this week she refused to get out of bed for the interview. She denied concerns or problems. She refused to answer questions and ordered me out of her room. She continues to refuse to allow blood draws. She does not participate in therapeutic groups or activities. She does not interact with peers or staff. She comes out of her room only for meals. She remains compliant with prescribed psychotropic medications-Depakote 1500 mg at bedtime, melatonin 3 mg at bedtime and paliperidone 9 mg at bedtime. She has posed no management problem and required no emergent medications for behavioral dyscontrol. Objective - Vital Signs Vital signs: Vital Signs Temp 98.1 F 11/07/17 00:19 Pulse 94 11/09/17 08:25 Resp 18 11/09/17 08:25 BP 107/61 11/09/17 08:25 Pulse Ox 96 11/04/17 08:20 - Psychiatric Psychiatric Comment(s): She presented as a disheveled and uncooperative 51-year-old female who is laying in bed. She would not get out of bed, maintained eye contact or cooperate with an interview. She showed psychomotor retardation but no abnormal movements. Her speech was not spontaneous. Her affect was irritable, angry and labile. She did not express clear paranoid ideation or delusional thoughts. She did not appear to be responding to internal stimuli during our encounter. Assessment and Plan Assessment: She remains irritable, paranoid, angry and uncooperative. She remains compliant with prescribed medications. Her probate her for involuntary mental health treatment is pending. (1) Bipolar disorder Current Visit: Yes Status: Acute Code(s): F31.9 - BIPOLAR DISORDER, UNSPECIFIED SNOMED Code(s): 51714458 (2) Poor compliance with medication Current Visit: Yes Status: Chronic Priority: High Code(s): Z91.14 - PATIENT'S OTHER NONCOMPLIANCE WITH MEDICATION REGIMEN SNOMED Code(s): 008499272 Plan: Continue inpatient psychiatric hospitalization due to the severity of mental illness. The probate hearing was rescheduled for 11/18/2017. Continue Depakote 1500 mg at bedtime, Invega 9 mg at bedtime and melatonin 3 mg at bedtime. Obtain a serum valproate and admission laboratories when she becomes less psychotic. Continue to monitor for safety. Encourage participation in therapeutic groups and activities. Evaluate clinical status response to treatment on a daily basis.
[2017-11-13] MEDS: MELATONIN 3 MG TABLET PO SCH (21:30)
[2017-11-13] MEDS: DIVALPROEX ER 500 MG TAB.ER.24H PO SCH (21:30)
[2017-11-13] MEDS: PALIPERIDONE 3 MG TAB.ER.24 PO SCH (21:30)
[2017-11-13] MEDS: LORazepam 1 MG TAB PO PRN (21:44)
[2017-11-14] MEDS: PANTOPRAZOLE 40 MG TABLET PO SCH (10:06)
[2017-11-14] MEDS: NICOTINE 21MG/24HR PATCH TRANSDERM SCH (10:06)
[2017-11-14] MEDS: LEVOTHYROXINE 25 MCG TAB PO SCH (10:06)
[2017-11-14] MEDS: LORazepam 1 MG TAB PO PRN ×2 (13:10→20:56)
[2017-11-14 13:11] VITALS: BP 141/67; PULSE 104
--- NOTE | 2017-11-14 13:21 | P.PN ---
Subjective Progress Note Date: 11/14/17 Principal diagnosis: Bipolar disorder severe manic with psychotic features, poor compliance with mental health care I reviewed the medical record and attempted to interview the patient. She remains irritable and uncooperative. As she is done every day this week she refused to get out of bed for the interview. She refused to answer questions and ordered me out of her room. She continues to refuse to allow blood draws. She does not participate in therapeutic groups or activities. She does not interact with peers or staff. She comes out of her room only for meals. She remains compliant with prescribed psychotropic medications-Depakote 1500 mg at bedtime, melatonin 3 mg at bedtime and paliperidone 9 mg at bedtime. She has posed no management problem and required no emergent medications for behavioral dyscontrol. Objective - Vital Signs Vital signs: Vital Signs Temp 98.1 F 11/07/17 00:19 Pulse 104 H 11/14/17 13:11 Resp 18 11/14/17 13:11 BP 141/67 11/14/17 13:11 Pulse Ox 96 11/04/17 08:20 - Psychiatric Psychiatric Comment(s): She presented as a disheveled appearing irritable 47-year-old woman who would not make eye contact or consent to interview. She is laying in bed and oriented to be out of the room. Her speech was not spontaneous. She did not appear to be responding to internal stimuli. She was not talking into her hand as though she were talking on the telephone. She did not speak enough for me to fully evaluate her thought process. Assessment and Plan Assessment: She remains irritable, uncooperative with her our attempts to interview her or are attempts to engage her in therapeutic groups and activities. However, she remains compliant with prescribed medications. Since the probate hearing is not for involuntary inpatient treatment she does not need to remain in the hospital until the hearing. The consensus during team meeting was that she does not meet criteria for involuntary hospitalization. (1) Bipolar disorder Current Visit: Yes Status: Acute Code(s): F31.9 - BIPOLAR DISORDER, UNSPECIFIED SNOMED Code(s): 03203557 (2) Poor compliance with medication Current Visit: Yes Status: Chronic Priority: High Code(s): Z91.14 - PATIENT'S OTHER NONCOMPLIANCE WITH MEDICATION REGIMEN SNOMED Code(s): 525635339 Plan: Continue inpatient psychiatric hospitalization due to the severity of mental illness. Discharge her on 11/15/2017. Continue Depakote 1500 mg at bedtime, Invega 9 mg at bedtime and melatonin 3 mg at bedtime. Obtain a serum valproate and admission laboratories when she becomes less psychotic. Continue to monitor for safety. Encourage participation in therapeutic groups and activities. Evaluate clinical status response to treatment on a daily basis.
[2017-11-14] MEDS: PALIPERIDONE 3 MG TAB.ER.24 PO SCH (20:54)
[2017-11-14] MEDS: DIVALPROEX ER 500 MG TAB.ER.24H PO SCH (20:55)
[2017-11-14] MEDS: MELATONIN 3 MG TABLET PO SCH (20:55)
[2017-11-15] MEDS: LEVOTHYROXINE 25 MCG TAB PO SCH (05:57)
[2017-11-15] MEDS: PANTOPRAZOLE 40 MG TABLET PO SCH (08:29)
[2017-11-15] MEDS: NICOTINE 21MG/24HR PATCH TRANSDERM SCH (09:35)
--- NOTE | 2017-11-15 14:46 | P.PN ---
Subjective Progress Note Date: 11/15/17 Principal diagnosis: Bipolar disorder severe manic with psychotic features, poor compliance with mental health care I reviewed the medical record, attempted to interview the patient and discussed her treatment and treatment plan during team meeting. She remains compliant with prescribed medication and has posed no management problem. She continues to isolate to her room coming out only for meals. She does not participate in therapeutic groups or activities and does not interact with peers. Staff reported that the continue to observe her talking into her hand as though she were talking in telephone where she carries on animated conversations. She did not sleep last night. She refused to speak with me today but was not irritable and did not order me out of the room. In the afternoon, I did not hear her talking loudly to herself. She agreed to have her blood work drawn and I asked her nurse to schedule Depakote and comprehensive metabolic panel for tomorrow morning. [facility] contacted the probate Court and arrange to modify the petition to be for involuntary hospitalization. Considering the severity of her illness, multiple hospitalizations I would not agreed to a deferral and would prefer to proceed with the probate hearing. Objective - Vital Signs Vital signs: Vital Signs Temp 98.1 F 11/07/17 00:19 Pulse 104 H 11/14/17 13:11 Resp 18 11/14/17 13:11 BP 141/67 11/14/17 13:11 Pulse Ox 96 11/04/17 08:20 - Psychiatric Psychiatric Comment(s): She presented as a pale and slightly disheveled appearing 51-year-old female who is laying in bed. She would not get out of bed for the interview. She did not make eye contact but appeared to attend to the interview. She had a flat facial expression. She showed psychomotor retardation but no abnormal movements. Her speech was not spontaneous. Her affect was flat. She did not speak enough to fully evaluate her thought process. During our encounter, she did not appear to be responding to internal stimuli and was not talking into her hand. She has absolutely no insight into her mental illness. Assessment and Plan Assessment: She is severely mentally ill minimally improved from admission. (1) Bipolar disorder Current Visit: Yes Status: Acute Code(s): F31.9 - BIPOLAR DISORDER, UNSPECIFIED SNOMED Code(s): 13574377 (2) Poor compliance with medication Current Visit: Yes Status: Chronic Priority: High Code(s): Z91.14 - PATIENT'S OTHER NONCOMPLIANCE WITH MEDICATION REGIMEN SNOMED Code(s): 658576540 Plan: Continue inpatient psychiatric hospitalization. Safety precautions. Continue Depakote 1500 mg at bedtime, Invega 9 mg at bedtime and melatonin 3 mg at bedtime. Obtain a serum valproate, comprehensive metabolic panel and CBC with differential tomorrow morning. Probate hearing for involuntary hospitalization scheduled for 11/18/2017. Encourage participation in therapeutic groups and activities. Evaluate clinical status response to treatment on a daily basis.
[2017-11-15] MEDS: DIVALPROEX ER 500 MG TAB.ER.24H PO SCH (20:11)
[2017-11-15] MEDS: LORazepam 1 MG TAB PO PRN (20:11)
[2017-11-15] MEDS: PALIPERIDONE 3 MG TAB.ER.24 PO SCH (20:11)
[2017-11-15] MEDS: MELATONIN 3 MG TABLET PO SCH (20:11)
[2017-11-16 10:26] LABS: Anisocytosis Slight; HCT 43.8 % (34.0-46.0); HGB 14.3 gm/dL (11.4-16.0); MCH 29.6 pg (25.0-35.0); MCHC 32.7 g/dL (31.0-37.0); MCV 90.6 fL (80.0-100.0); Mean Platelet Volume 8.5; Platelet Count 273 k/uL (150-450); RBC 4.84 m/uL (3.80-5.40); WBC 9.3 k/uL (3.8-10.6)
[2017-11-16 10:43] LABS: ALT 18 U/L (9-52); AST 16 U/L (14-36); Albumin 3.2 g/dL (3.5-5.0); Alkaline Phosphatase 51 U/L (38-126); Anion Gap 14 mmol/L; Blood Urea Nitrogen 17 mg/dL (7-17); Calcium 9.2 mg/dL (8.4-10.2); Carbon Dioxide 25 mmol/L (22-30); Chloride 101 mmol/L (98-107); Glucose 115 mg/dL (74-99); Potassium 4.5 mmol/L (3.5-5.1); Sodium 140 mmol/L (137-145); Total Bilirubin <0.1 mg/dL (0.2-1.3)
[2017-11-16] MEDS: NICOTINE 21MG/24HR PATCH TRANSDERM SCH (11:28)
[2017-11-16] MEDS: PANTOPRAZOLE 40 MG TABLET PO SCH (11:28)
[2017-11-16] MEDS: LEVOTHYROXINE 25 MCG TAB PO SCH (11:28)
[2017-11-16 12:11] LABS: Band Neutrophils % 1 %; Eosinophils # (M) 0.09 k/uL (0-0.7); Lymphocytes # (M) 3.81 k/uL (1.0-4.8); Metamyelocytes # (M) 0.09 k/uL (0); Metamyelocytes % 1 %; Monocytes # (M) 0.65 k/uL (0-1.0); Myelocytes # (M) 0.09 k/uL (0); Myelocytes % 1 %; Neutrophils % (M) 51 %; Nucleated Red Blood Cells 0 /100 WBC (0-0); Total Cells Counted 200
--- NOTE | 2017-11-16 14:16 | P.PN ---
Subjective Progress Note Date: 11/16/17 Principal diagnosis: Bipolar disorder severe manic with psychotic features, poor compliance with mental health care I reviewed the medical record, interviewed the patient and discussed her treatment and treatment plan during team meeting. The [facility] public utilities sales representative reported that he met with her and her chief human resources officer yesterday and she deferred the court hearing. He explained to her and she appeared to understand that if she fails to keep her appointments with [facility] they will obtain a court order for her to be rehospitalized. She allowed laboratory draw blood for a copy has a medical metabolic panel and a serum valproate level today. She denied problems or concerns other than wishing to be discharged. She does not participate in therapeutic groups and activities. She spends her time alone in her room only coming out for meals. She does not initiate social contact with staff or peers. Usually in the late afternoon we hear her talking loudly to herself (her voice is loud enough to be heard through the closed door to her room). When observed she is holding her hand to her face and talking as though she is talking on the telephone. Objective - Vital Signs Vital signs: Vital Signs Temp 98.1 F 11/07/17 00:19 Pulse 104 H 11/14/17 13:11 Resp 18 11/14/17 13:11 BP 141/67 11/14/17 13:11 Pulse Ox 96 11/04/17 08:20 - Psychiatric Psychiatric Comment(s): She presented as a disheveled appearing middle-aged female with white hair. She does not make eye contact but appears to attend to the interview. She volunteers no information and answers questions with brief statements. She is irritable and impatient. Her thinking is concrete and she appears to be responding to internal stimuli. - Labs CBC & Chem 7: 11/16/17 10:40 Labs: Abnormal Lab Results - Last 24 Hours (Table) 11/16/17 Range/Units 10:40 RDW 16.0 H (11.5-15.5) % Metamyelocytes # (Man) 0.09 H (0) k/uL Myelocytes # (Manual) 0.09 H (0) k/uL Her valproic acid level from this morning is 64.2 g/mL. Total bilirubin, AST, alkaline phosphatase the case and ALT are less than 0.1, 16, 51 and 18 respectively. Assessment and Plan Assessment: She is severely mentally ill minimally to moderately improved from admission. (1) Bipolar disorder Current Visit: Yes Status: Acute Code(s): F31.9 - BIPOLAR DISORDER, UNSPECIFIED SNOMED Code(s): 06288818 (2) Poor compliance with medication Current Visit: Yes Status: Chronic Priority: High Code(s): Z91.14 - PATIENT'S OTHER NONCOMPLIANCE WITH MEDICATION REGIMEN SNOMED Code(s): 233480490 Plan: Continue inpatient psychiatric hospitalization. Safety precautions. Continue Depakote 1500 mg at bedtime, Invega 9 mg at bedtime and melatonin 3 mg at bedtime. Probate hearing for involuntary hospitalization scheduled for 2017. Encourage participation in therapeutic groups and activities. Evaluate clinical status response to treatment on a daily basis.
[2017-11-16 14:36] LABS: Valproic Acid (Depakene) 64.2 ug/mL
[2017-11-16 14:37] VITALS: BMI 34.9
[2017-11-16] MEDS: DIVALPROEX ER 500 MG TAB.ER.24H PO SCH (21:12)
[2017-11-16] MEDS: PALIPERIDONE 3 MG TAB.ER.24 PO SCH (21:12)
[2017-11-16] MEDS: MELATONIN 3 MG TABLET PO SCH (21:12)
[2017-11-16] MEDS: LORazepam 1 MG TAB PO PRN (21:13)
[2017-11-17] MEDS: PANTOPRAZOLE 40 MG TABLET PO SCH (08:13)
[2017-11-17] MEDS: LEVOTHYROXINE 25 MCG TAB PO SCH (08:13)
[2017-11-17] MEDS: NICOTINE 21MG/24HR PATCH TRANSDERM SCH (08:13)
[2017-11-17] MEDS: LORazepam 1 MG TAB PO PRN (08:14)
--- NOTE | 2017-11-17 14:56 | P.PN ---
Subjective Progress Note Date: 11/17/17 Principal diagnosis: Bipolar disorder severe manic with psychotic features, poor compliance with mental health care I reviewed the medical record, interviewed the patient and discussed her treatment and treatment plan during team meeting. She denied problems or concerns. In the late afternoon, I heard her talking loudly to herself through with a closed door to her room. When I entered she had her hand against side of her face and was talking loudly. She stated that she was not "talking to anyone" but "clarifying a book that I am reading." She denied that she was experiencing auditory hallucinations. She spends her time in bed and does not interact with staff or peers. She only comes out for meals. She remains compliant with prescribed medications. Objective - Vital Signs Vital signs: Vital Signs Temp 98.1 F 11/07/17 00:19 Pulse 104 H 11/14/17 13:11 Resp 18 11/14/17 13:11 BP 141/67 11/14/17 13:11 Pulse Ox 96 11/04/17 08:20 Intake & Output 11/16/17 11/17/17 11/17/17 18:59 06:59 18:59 Weight 95.254 kg - Psychiatric Psychiatric Comment(s): She presented as disheveled-appearing, pale and stocky female. She made eye contact and appeared to attend to the interview. She had a blunted facial expression. She showed slight psychomotor retardation but no abnormal movements. Her speech was not spontaneous but had normal rate, rhythm and volume. Her affect was blunted but appropriate. She was not irritable. She denied suicidal ideation or wishes. She did not express phobias, ideas reference or clear paranoid ideation. Her comments about clear for titration of reading material appears to be part of a delusional belief since I have never seen her reading a book. Her thinking was concrete and associations were at times not logical coherent. Her talking into her hands suggest auditory hallucinations but at times when she is not talking into her hand she does not appear to responding to internal stimuli. - Labs CBC & Chem 7: 11/16/17 10:40 11/16/17 09:40 Labs: Abnormal Lab Results - Last 24 Hours (Table) 11/16/17 Range/Units 09:40 Glucose 115 H (74-99) mg/dL Total Bilirubin <0.1 L (0.2-1.3) mg/dL Total Protein 6.0 L (6.3-8.2) g/dL Albumin 3.2 L (3.5-5.0) g/dL Assessment and Plan Assessment: She continues to avoid social contact or participation in therapeutic groups or activities. She is much less irritable and remains compliant with prescribed psychotropic medications. She continues to demonstrate psychotic symptoms including disorganization of thought and auditory hallucinations. (1) Bipolar disorder Current Visit: Yes Status: Acute Code(s): F31.9 - BIPOLAR DISORDER, UNSPECIFIED SNOMED Code(s): 65916749 (2) Poor compliance with medication Current Visit: Yes Status: Chronic Priority: High Code(s): Z91.14 - PATIENT'S OTHER NONCOMPLIANCE WITH MEDICATION REGIMEN SNOMED Code(s): 068543479 Plan: Continue inpatient psychiatric hospitalization. Safety precautions. Continue Depakote 1500 mg at bedtime, Invega 9 mg at bedtime and melatonin 3 mg at bedtime. She deferred the probate hearing. Encourage participation in therapeutic groups and activities. Evaluate clinical status response to treatment on a daily basis. Discharge home on 11/18/2017 with follow-up by a [facility].
[2017-11-17] MEDS: PALIPERIDONE 3 MG TAB.ER.24 PO SCH (20:15)
[2017-11-17] MEDS: MELATONIN 3 MG TABLET PO SCH (20:16)
[2017-11-17] MEDS: DIVALPROEX ER 500 MG TAB.ER.24H PO SCH (20:16)
[2017-11-18] MEDS: LEVOTHYROXINE 25 MCG TAB PO SCH (05:26)
[2017-11-18] MEDS: NICOTINE 21MG/24HR PATCH TRANSDERM SCH (08:36)
[2017-11-18] MEDS: PANTOPRAZOLE 40 MG TABLET PO SCH (08:36)
[2017-11-18] MEDS: LORazepam 1 MG TAB PO PRN (08:37)
--- NOTE | 2017-11-18 16:40 | P.DS ---
Providers Date of admission: 11/03/17 17:41 Attending physician: Lorne Bonner MD Consults: 11/03/17 18:12 Consult Physician Routine Consulting Provider: Gabbie Rosen Consult Reason/Comments: H & P and medical care Do you want consulting provider notified?: Yes Primary care physician: Gabbie Rosen - Discharge Diagnosis(es) (1) Bipolar disorder Status: Chronic (2) Poor compliance with medication Status: Chronic Priority: High Hospital Course: The patient is a 51-year-old female with a well-established diagnosis of bipolar disorder. She was readmitted to the psychiatric unit approximately 3 weeks after discharge. According to the [facility] liaison she did not keep her [facility] appointment after her discharge in September 2017. She refused to answer the door when the mobile crisis team came to her house. On presentation to the unit she was irritable, angry and uncooperative. She would not consent to interview or consent to blood draws. However, she took her prescribed psychotropic medications; paliperidone and Depakote. We admitted her to the psychiatric unit under care of this headline writer. We provided a biopsychosocial assessment. The color consultant president [employer] completed initial physical exam and medical history and diagnosed tobacco use disorder and hypothyroidism. The president consumer electronics company recommended a nicotine patch and to continue Synthroid 25 g daily. We continued her outpatient psychotropic medications Depakote 1500 mg at bedtime and paliperidone 9 mg at bedtime. The patient did not participate in therapeutic groups and activities. She did not socialize with staff or peers. She remained in her room only coming out for meals. However she maintained compliant to her medications throughout this hospitalization. [facility] submitted a petition for outpatient mental health treatment. However, during this hospitalization they converted at to petition for inpatient treatment. The patient met with her claims attorney and deferred the probate hearing. She denies psychotic symptoms but is often observed talking loudly to herself. We change the paliperidone to risperidone 6 mg at bedtime because paliperidone was a nonformulary tier 5 drug on her insurance formulary list. At time of discharge she presented as a malodorous and somewhat disheveled appearing middle-aged female. She was pleasant approach and made eye contact. She had a blunted facial expression. She showed psychomotor retardation but no abnormal movements. Her speech was not spontaneous but had normal volume and rate. Her affect was stable and appropriate. She denied suicidal ideation or wishes. She denied homicidal ideation. She denied such depressive cognitions as hopelessness, helplessness or worthlessness. She did not express clear ideas reference or paranoid ideation. She is breast fragmented delusional beliefs that she has multiple to [place] and has extremely high intelligence. She sometimes talks about translating books into other languages. She denies hallucination but appears to be responding to internal stimuli. Patient Condition at Discharge: Stable Plan - Discharge Summary Discharge Rx Participant: No New Discharge Prescriptions: New risperiDONE 6 mg PO HS #60 tablet Continue Divalproex ER [Depakote ER] 1,500 mg PO HS #90 tab.er.24h Levothyroxine Sodium [Synthroid] 25 mcg PO DAILY #30 tab Melatonin 3 mg PO HS #30 tablet Nicotine 14Mg/24Hr Patch [Habitrol] 1 patch TRANSDERM DAILY #7 patch Omeprazole 20 mg PO DAILY #30 capsule.dr Discontinued Levothyroxine Sodium [Synthroid] 25 mcg PO DAILY Esomeprazole Magnesium [NexIUM] 40 mg PO DAILY Melatonin 3 mg PO HS #30 tablet Paliperidone [Invega] 9 mg PO HS #30 tab.er.24 Divalproex ER [Depakote ER] 1,500 mg PO HS #90 tab.er.24h LORazepam [Ativan] 2 mg PO TID traMADol HCL [Ultram] 50 mg PO Q8HR PRN PRN Reason: Pain Paliperidone [Invega] 9 mg PO HS Discharge Medication List Divalproex ER [Depakote ER] 1,500 mg PO HS #90 tab.er.24h 11/18/17 [Rx] Levothyroxine Sodium [Synthroid] 25 mcg PO DAILY #30 tab 11/18/17 [Rx] Melatonin 3 mg PO HS #30 tablet 11/18/17 [Rx] Nicotine 14Mg/24Hr Patch [Habitrol] 1 patch TRANSDERM DAILY #7 patch 11/18/17 [ Rx] Omeprazole 20 mg PO DAILY #30 capsule. 11/18/17 [Rx] risperiDONE 6 mg PO HS #60 tablet 11/18/17 [Rx] Follow up Appointment(s)/Referral(s): [facility] [Outside] - 11/18/17 (ACT to follow upon dc.) Gabbie Rosen MD [Primary Care Provider] - 1-2 days Patient Instructions/Handouts: Bipolar Disorder (DC) Activity/Diet/Wound Care/Special Instructions: Activity and diet as tolerated. Avoid the use of street drugs and alcohol. Remove all firearms from the home. Take all medications as prescribed. Follow up with your Primary Care Physician in one to two days. When you are in need of refills on your medications please contact your medical provider and/or your outpatient psychiatrist to have this done. Please go to the scheduled outpatient appointment for aftercare. If symptoms return or become worse call the crisis line and/ or go the nearest emergency room for an evaluation. l Discharge Disposition: HOME SELF-CARE
== END 2017-11-18 13:31 | disposition home or self-care (01) | DRG 885 ==
LOC: EC 13:10 → MERGE 17:41 → 3MHU 17:41
PROVIDERS: ADMIT Psychiatry & Neurology Psychiatry; ATTEND Psychiatry & Neurology Psychiatry
DX: F31.2 Bipolar disorder, current episode manic severe with psychotic features (principal); E03.9 Hypothyroidism, unspecified; F17.200 Nicotine dependence, unspecified, uncomplicated; G89.29 Other chronic pain; K21.9 Gastro-esophageal reflux disease without esophagitis; M54.9 Dorsalgia, unspecified; Z79.899 Other long term (current) drug therapy; Z79.890 Hormone replacement therapy; Z88.5 Allergy status to narcotic agent; Z91.14 Patient's other noncompliance with medication regimen
CPT/HCPCS: 80053; 80164; 82075; 85025; 99285

== ENCOUNTER → 2017-12-27 | Outpatient (CLI) | payer MEDICARE ==
--- NOTE | 2017-12-27 15:38 | XR ---
Lumbar spine HISTORY: Chronic back pain 3 views of the lumbar spine, no comparisons There is multilevel spondylosis. Loss of disc height especially at L4-5 and L5-S1 is noted. Lumbar ve rtebral bodies show preserved height but decreased mineralization. Sclerosis present in the posterior elements of the lumbar spine. IMPRESSION: Degenerative disc disease and facet arthropathy.
--- NOTE | 2017-12-27 15:39 | XR ---
Thoracic spine HISTORY: Chronic back pain 3 views of the thoracic spine There is multilevel spondylosis. Thoracic vertebral bodies show preserved height and alignment. Disc spaces are maintained. No paraspinal mass. There is mild spinal curvature. IMPRESSION: Thoracic spondylosis.
== END | disposition home or self-care (01) ==
LOC: RADXRMAIN 14:28
PROVIDERS: ATTEND Internal Medicine
DX: M51.36 Other intervertebral disc degeneration, lumbar region (principal); M46.96 Unspecified inflammatory spondylopathy, lumbar region; M47.814 Spondylosis without myelopathy or radiculopathy, thoracic region; G89.29 Other chronic pain
CPT/HCPCS: 72070; 72100

== ENCOUNTER → 2018-05-05 | Outpatient (CLI) | payer MEDICARE ==
[2018-05-05 18:46] LABS: ALT 25 U/L (8-44); AST 30 U/L (13-35); Albumin/Globulin Ratio 1.77 (1.20-2.10); Alkaline Phosphatase 53 U/L (41-126); Bilirubin, Conjugated <0.20 mg/dL (0.20-0.40); Cholesterol 152 mg/dL (0-200); Globulin 2.2 g/dL (2.1-3.7); Glucose 116 mg/dL (70-110); LDL Cholesterol,Calculated 59.6 mg/dL (0.0-131.0); Total Bilirubin 0.2 mg/dL (0.3-1.2); Total Protein 6.1 g/dL (6.2-8.2)
[2018-05-05 19:22] LABS: Valproic Acid (Depakene) 49.2 ug/mL (50.0-100.0)
[2018-05-05 22:42] LABS: Hemoglobin A1C 5.6 % (4.0-6.0)
== END | disposition home or self-care (01) ==
LOC: LABWHC1 14:32
PROVIDERS: ATTEND Psychiatry & Neurology Psychiatry
DX: Z51.81 Encounter for therapeutic drug level monitoring (principal); Z79.899 Other long term (current) drug therapy
CPT/HCPCS: 36415; 80061; 80076; 80164; 82947; 83036; 84439; 84443

== ENCOUNTER 2019-01-18 18:08 | Emergency (ER) | payer MEDICARE ==
[2019-01-18 18:17] VITALS: RESP 18
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
[2019-01-18 19:07] LABS: Appearance,Urine Cloudy (Clear); Bilirubin,Urine 1+ (Negative); Blood,Urine Small (Negative); Color,Urine Dark Brown; Glucose,Urine (UA) Negative (Negative); Hyaline Casts,Urine 15 /lpf (0-2); Ketones,Urine 1+ (Negative); Leukocyte Esterase,Urine Trace (Negative); Mucus,Urine Many /hpf; Nitrite,Urine Negative (Negative); PH, Urine 6.5 (5.0-8.0); Protein,Urine 2+ (Negative); RBC,Urine 10 /hpf (0-5); Specific Gravity,Urine 1.041 (1.001-1.035); Squamous Epithelial Cell,Urine 25 /hpf (0-4); Urobilinogen,Urine >12.0 mg/dL (<2.0); WBC,Urine 4 /hpf (0-5)
[2019-01-18 19:08] LABS: Amphetamine Screen,Urine Not Detected (NotDetected); Barbiturate Screen,Urine Not Detected (NotDetected); Benzodiazepines Screen,Urine Detected (NotDetected); Cocaine Screen,Urine Not Detected (NotDetected); Methadone Screen, Urine Not Detected (NotDetected); Opiate Screen,Urine Detected (NotDetected); Oxycodone Screen, Urine Not Detected (NotDetected); Phencyclidine Screen,Urine Not Detected (NotDetected); Tricyclic Antidepressant,Urine Not Detected (NotDetected); Urn Cannabinoid Scrn Not Detected (NotDetected)
[2019-01-18] MEDS ORDERED: LORazepam 1 MG TAB PO PRN (23:26)
[2019-01-18] MEDS ORDERED: PANTOPRAZOLE 40 MG TABLET PO SCH (23:30)
[2019-01-18] MEDS ORDERED: lamoTRIgine 100 MG TAB PO SCH (23:30)
[2019-01-18] MEDS ORDERED: ARIPiprazole 15 MG TAB PO SCH (23:30)
[2019-01-18] MEDS ORDERED: traZODone HCL 100 MG TAB PO SCH (23:30)
[2019-01-19 00:12] VITALS: BP 124/92; PULSE 98; TEMP 97.9
== END 2019-01-19 03:05 ==
LOC: EC 18:08
DX: F31.2 Bipolar disorder, current episode manic severe with psychotic features (principal); F41.9 Anxiety disorder, unspecified; F17.200 Nicotine dependence, unspecified, uncomplicated; Z88.5 Allergy status to narcotic agent; Z88.8 Allergy status to other drugs, medicaments and biological substances; Z79.899 Other long term (current) drug therapy
CPT/HCPCS: 80306; 81001; 82075; 99285

== ENCOUNTER 2019-08-29 13:12 | Inpatient (IN) | payer MEDICARE, MEDICAID ==
--- NOTE | 2019-08-29 14:02 | ED ---
General Adult HPI - General Chief complaint: Psychiatric Symptoms Stated complaint: Mental Health Time Seen by Provider: 08/29/19 13:24 Source: patient, police, RN notes reviewed, old records reviewed Mode of arrival: ambulatory Limitations: no limitations - History of Present Illness Initial comments: 53-year-old female patient presents to ED for to get evaluation. Patient reports that she was ordered by the head scorer to undergo psychiatric evaluation. Patient denies any suicidal or homicidal ideations. For that she was outside today smoking a cigarette and relaxing does not know why she was picked up per her history. She states that she takes Prozac and Ativan to that she has been taking them as recommended. Denies any physical complaints. Systemic: Pt denies fatigue, fever/chills, rash. Pt denies weakness, night sweats, weight loss. Neuro: Pt denies headache, visual disturbances, syncope or pre-syncope. HEENT: Pt denies ocular discharge or irritation, otalgia, rhinorrhea, pharyngitis or notable lymphadenopathy. Cardiopulmonary: Pt denies chest pain, SOB, heart palpitations, dyspnea on exertion. Abdominal/GI: Pt denies abdominal pain, n/v/d. : Pt denies dysuria, burning w/ urination, frequency/urgency. Denies new onset urinary or bowel incontinence. MSK: Pt denies myalgia, loss of strength or function in extremities. Neuro: Pt denies new onset weakness, paresthesias. - Related Data Home Medications Medication Instructions Recorded Confirmed ARIPiprazole [Abilify] 30 mg PO HS 01/18/19 01/18/19 LORazepam [Ativan] 1 mg PO BID PRN 01/18/19 01/18/19 lamoTRIgine [LaMICtal] 200 mg PO DAILY 01/18/19 01/18/19 traZODone HCL [Desyrel] 300 mg PO HS 01/18/19 01/18/19 Previous Rx's Medication Instructions Recorded Omeprazole 20 mg PO DAILY #30 capsule. 11/18/17 Allergies Allergy/AdvReac Type Severity Reaction Status Date / Time codeine Allergy Itching Verified 08/29/19 13:17 risperidone [From Risperdal] Allergy Unknown Verified 08/29/19 13:17 Review of Systems ROS Statement: Those systems with pertinent positive or pertinent negative responses have been documented in the HPI. ROS Other: All systems not noted in ROS Statement are negative. Past Medical History Past Medical History: GERD/Reflux Additional Past Medical History / Comment(s): back pain History of Any Multi-Drug Resistant Organisms: None Reported Past Surgical History: Breast Surgery Past Psychological History: Anxiety, Bipolar Smoking Status: Current every day smoker Past Alcohol Use History: None Reported Past Drug Use History: None Reported General Exam - General Exam Comments Initial Comments: Constitutional: NAD, AOX3, Pt has pleasant affect. HEENT: NC/AT, trachea midline, neck supple, no lymphadenopathy. Posterior pharynx non erythematous, without exudates. External ears appear normal, without discharge. Mucous membranes moist. Eyes PERRLA, EOM intact. There is no scleral icterus. No pallor noted. Cardiopulmonary: RRR, no murmurs, rubs or gallops, no JVD noted. Lungs CTAB in anterior and posterior stovall. No peripheral edema. Abdominal exam: Abdomen soft and non-distended. Abdomen non-tender to palpation in all 4 quadrants. Bowel sounds active in LLQ. No hepatosplenomegaly. No ecchymosis Neuro: CN II-XII grossly intact. No nuchal rigidity. No raccon eyes, no mchugh sign, no hemotympanum. No cervical spinal tenderness. MSK: Full active ROM in upper and lower extremities, 5/5 stregnth. Limitations: no limitations Course Vital Signs 08/29/19 13:17 Temperature 97.8 F Pulse Rate 99 Respiratory 18 Rate Blood Pressure 138/89 O2 Sat by Pulse 97 Oximetry Medical Decision Making - Medical Decision Making 53-year-old female patient presents to ED for evaluation of psychiatric disorder. Patient denies any complaints. Not a suicidal homicidal ideations. Patient felt under stable, afebrile. Physical exam didn't display acute pathology. Patient was evaluated by EPS recommended for admission. Case discussed with Dr. Quinones. - Lab Data Lab Results 08/29/19 Range/Units 14:09 Urine Opiates Screen Not Detected (NotDetected) Ur Oxycodone Screen Not Detected (NotDetected) Urine Methadone Screen Not Detected (NotDetected) Ur Propoxyphene Screen Not Detected (NotDetected) Ur Barbiturates Screen Not Detected (NotDetected) U Tricyclic Antidepress Not Detected (NotDetected) Ur Phencyclidine Scrn Not Detected (NotDetected) Ur Amphetamines Screen Not Detected (NotDetected) U Methamphetamines Scrn Not Detected (NotDetected) U Benzodiazepines Scrn Detected H (NotDetected) Urine Cocaine Screen Not Detected (NotDetected) U Marijuana (THC) Screen Not Detected (NotDetected) Disposition Clinical Impression: Psychiatric disorder Disposition: ADMITTED IP TO THIS [facility] Condition: Serious Is patient prescribed a controlled substance at d/c from ED?: No Referrals: Gabbie Rosen MD [Primary Care Provider] - 1-2 days
[2019-08-29 14:29] LABS: Amphetamine Screen,Urine Not Detected (NotDetected); Barbiturate Screen,Urine Not Detected (NotDetected); Benzodiazepines Screen,Urine Detected (NotDetected); Cocaine Screen,Urine Not Detected (NotDetected); Methadone Screen, Urine Not Detected (NotDetected); Opiate Screen,Urine Not Detected (NotDetected); Oxycodone Screen, Urine Not Detected (NotDetected); Phencyclidine Screen,Urine Not Detected (NotDetected); Tricyclic Antidepressant,Urine Not Detected (NotDetected); Urn Cannabinoid Scrn Not Detected (NotDetected)
[2019-08-29] MEDS ORDERED: MAGNESIUM HYDROXIDE 2,400 MG/10 ML CUP PO PRN (16:55)
[2019-08-29] MEDS ORDERED: ZIPRASIDONE 20 MG VIAL IM PRN (16:55)
[2019-08-29] MEDS ORDERED: MAG HYDROX/AL HYDROX/SIMETH 30 ML CUP PO PRN (16:55)
[2019-08-29] MEDS ORDERED: ACETAMINOPHEN TAB 325 MG TAB PO PRN (16:55)
[2019-08-29] MEDS ORDERED: LORazepam 0.5 MG TAB PO PRN (17:05)
[2019-08-29] MEDS ORDERED: LORazepam 1 MG TAB PO SCH (21:00)
[2019-08-29] MEDS ORDERED: OLANZapine 10 MG TAB PO SCH ×2 (21:00)
[2019-08-29] MEDS: lamoTRIgine 100 MG TAB PO SCH (22:12)
[2019-08-29] MEDS: NICOTINE 14MG/24HR PATCH TRANSDERM SCH (22:15)
[2019-08-29] MEDS: LORazepam 1 MG TAB PO SCH (22:15)
[2019-08-30] MEDS: lamoTRIgine 100 MG TAB PO SCH ×2 (08:35→21:48)
[2019-08-30] MEDS: PANTOPRAZOLE 40 MG TABLET PO SCH (08:35)
[2019-08-30] MEDS: NICOTINE 14MG/24HR PATCH TRANSDERM SCH (08:35)
[2019-08-30 08:47] LABS: HCT 44.6 % (34.0-46.0); HGB 14.4 gm/dL (11.4-16.0); MCH 28.2 pg (25.0-35.0); MCHC 32.2 g/dL (31.0-37.0); MCV 87.6 fL (80.0-100.0); Mean Platelet Volume 8.8; Platelet Count 386 k/uL (150-450); RDW 15.1 % (11.5-15.5); WBC 9.4 k/uL (3.8-10.6)
[2019-08-30 08:50] LABS: ALT 14 U/L (4-34); AST 18 U/L (14-36); African American GFR (CKD) >90 (>60 ml/min/1.73 sqM); Albumin 3.6 g/dL (3.5-5.0); Alkaline Phosphatase 78 U/L (38-126); Anion Gap 8 mmol/L; Blood Urea Nitrogen 15 mg/dL (7-17); Calcium 9.3 mg/dL (8.4-10.2); Carbon Dioxide 27 mmol/L (22-30); Chloride 104 mmol/L (98-107); Cholesterol 125 mg/dL (<200); Glucose 87 mg/dL (74-99); HDL Cholesterol 57 mg/dL (40-60); LDL Cholesterol,Calculated 57 mg/dL (0-99); Non-African American GFR(CKD) 89 (>60 ml/min/1.73 sqM); Sodium 139 mmol/L (137-145); Total Bilirubin 0.2 mg/dL (0.2-1.3); Total Protein 6.9 g/dL (6.3-8.2); Triglycerides 57 mg/dL (<150)
[2019-08-30 09:19] LABS: Eosinophils # (M) 0.47 k/uL (0-0.7); Lymphocytes # (M) 3.38 k/uL (1.0-4.8); Monocytes # (M) 0.19 k/uL (0-1.0); Neutrophils # (M) 5.36 k/uL (1.3-7.7); Neutrophils % (M) 57 %; Nucleated Red Blood Cells 0 /100 WBC (0-0); Total Cells Counted 100
--- NOTE | 2019-08-30 12:03 | P.HP ---
Psychiatric H&P - . H&P Date: 08/30/19 History & Physical: Allergies Allergy/AdvReac Type Severity Reaction Status Date / Time codeine Allergy Itching Verified 08/29/19 18:45 risperidone From Risperdal Allergy Unknown Verified 08/29/19 18:45 Vital Signs Temp 98.8 F 08/29/19 22:25 Pulse 101 H 08/29/19 18:30 Resp 20 08/29/19 18:30 BP 111/45 08/29/19 18:30 Pulse Ox 93 L 08/29/19 22:06 Intake & Output 08/29/19 08/30/19 08/30/19 18:59 06:59 18:59 Weight 72.575 kg Laboratory Last Values WBC 9.4 k/uL (3.8-10.6) 08/30/19 07:30 RBC 5.10 m/uL (3.80-5.40) 08/30/19 07:30 Hgb 14.4 gm/dL (11.4-16.0) 08/30/19 07:30 Hct 44.6 % (34.0-46.0) 08/30/19 07:30 MCV 87.6 fL (80.0-100.0) 08/30/19 07:30 MCH 28.2 pg (25.0-35.0) 08/30/19 07:30 MCHC 32.2 g/dL (31.0-37.0) 08/30/19 07:30 RDW 15.1 % (11.5-15.5) 08/30/19 07:30 Plt Count 386 k/uL (150-450) 08/30/19 07:30 Neutrophils % (Manual) 57 % 08/30/19 07:30 Lymphocytes % (Manual) 36 % 08/30/19 07:30 Monocytes % (Manual) 2 % 08/30/19 07:30 Eosinophils % (Manual) 5 % 08/30/19 07:30 Neutrophils # (Manual) 5.36 k/uL (1.3-7.7) 08/30/19 07:30 Lymphocytes # (Manual) 3.38 k/uL (1.0-4.8) 08/30/19 07:30 Monocytes # (Manual) 0.19 k/uL (0-1.0) 08/30/19 07:30 Eosinophils # (Manual) 0.47 k/uL (0-0.7) 08/30/19 07:30 Nucleated RBCs 0 /100 WBC (0-0) 08/30/19 07:30 Manual Slide Review Performed 08/30/19 07:30 RBC Morphology Normal 08/30/19 07:30 Sodium 139 mmol/L (137-145) 08/30/19 07:30 Potassium 5.0 mmol/L (3.5-5.1) 08/30/19 07:30 Chloride 104 mmol/L (98-107) 08/30/19 07:30 Carbon Dioxide 27 mmol/L (22-30) 08/30/19 07:30 Anion Gap 8 mmol/L 08/30/19 07:30 BUN 15 mg/dL (7-17) 08/30/19 07:30 Creatinine 0.78 mg/dL (0.52-1.04) 08/30/19 07:30 Est GFR (CKD-EPI)AfAm >90 (>60 ml/min/1.73 sqM) 08/30/19 07:30 Est GFR (CKD-EPI)NonAf 89 (>60 ml/min/1.73 sqM) 08/30/19 07:30 Glucose 87 mg/dL (74-99) 08/30/19 07:30 Calcium 9.3 mg/dL (8.4-10.2) 08/30/19 07:30 Total Bilirubin 0.2 mg/dL (0.2-1.3) 08/30/19 07:30 AST 18 U/L (14-36) 08/30/19 07:30 ALT 14 U/L (4-34) 08/30/19 07:30 Alkaline Phosphatase 78 U/L (38-126) 08/30/19 07:30 Total Protein 6.9 g/dL (6.3-8.2) 08/30/19 07:30 Albumin 3.6 g/dL (3.5-5.0) 08/30/19 07:30 Triglycerides 57 mg/dL (<150) 08/30/19 07:30 Cholesterol 125 mg/dL (<200) 08/30/19 07:30 LDL Cholesterol, Calc 57 mg/dL (0-99) 08/30/19 07:30 HDL Cholesterol 57 mg/dL (40-60) 08/30/19 07:30 TSH 3.340 mIU/L (0.465-4.680) 08/30/19 07:30 Urine Opiates Screen Not Detected (NotDetected) 08/29/19 14:09 Ur Oxycodone Screen Not Detected (NotDetected) 08/29/19 14:09 Urine Methadone Screen Not Detected (NotDetected) 08/29/19 14:09 Ur Propoxyphene Screen Not Detected (NotDetected) 08/29/19 14:09 Ur Barbiturates Screen Not Detected (NotDetected) 08/29/19 14:09 U Tricyclic Antidepress Not Detected (NotDetected) 08/29/19 14:09 Ur Phencyclidine Scrn Not Detected (NotDetected) 08/29/19 14:09 Ur Amphetamines Screen Not Detected (NotDetected) 08/29/19 14:09 U Methamphetamines Scrn Not Detected (NotDetected) 08/29/19 14:09 U Benzodiazepines Scrn Detected (NotDetected) H 08/29/19 14:09 Urine Cocaine Screen Not Detected (NotDetected) 08/29/19 14:09 U Marijuana (THC) Screen Not Detected (NotDetected) 08/29/19 14:09 08/30/19 10:24 IDENTIFYING DATA: Patient is a 53-year-old female with a long history of bipolar disorder who currently lives at [facility] has no kids is single and collects disability. HPI: Patient presented to the hospital yesterday by police on a pickup order for a psychiatric evaluation. Patient has a long history with [facility] and a chronic history of bipolar disorder with noncompliance. As per ER report, claimed that patient stated that she was smoking a cigarette outside and was picked up to go to the hospital. Boomswing Operator spoke with [facility] Dr. Banks previously who stated that patient has been acting more bizarre, erratic and worsening sleep and also has been minimizing her symptoms for several weeks. Patient appeared to be disheveled in appearance and appeared to be shivering at times during the conversation. She denied any problems at the [facility] and states that "I'm a grown woman and I can leave and go to the store whenever I want". Patient was however directable, had poverty of content and was somewhat guarded during conversation. She states that "I did nothing wrong". She has superficial insight and poor judgment. She claims to be sleeping less recently however states that she has been taking her medications including Lamictal and Zyprexa. She states that "the ladies at [facility] don't like me and I think that they were setting me up". She denied any manic symptoms at this time including racing thoughts and increase in goal-directed behavior. She denied any depressive symptoms or anhedonia. Patient denies any suicidal or homicidal ideations intent or plan. At this time patient denies any auditory or visual hallucinations. Patient admits to using cigarettes daily however denies any other recreational drug use. Patient's UDS was positive for benzodiazepines. PAST PSYCHIATRIC HISTORY: Patient states that she has a chronic history of bipolar disorder and has been following up with Dr. Banks that [facility] who is her psychiatrist. Patient was last admitted to the mental health unit on 10/2017 and was placed on Risperdal and Depakote at that time which she states was discontinued due to increase in weight gain. Patient is currently on Zyprexa and Lamictal. She denies any history of suicide attempts. PMH: GERD ALLERGIES: Patient states that she is ALLERGIC to codeine and risperidone and lithium. CHEMICAL DEPENDENCY HISTORY: as per HPI FAMILY PSYCHIATRIC/SUBSTANCE USE HISTORY: denies SOCIAL HISTORY: Patient was born and raised in [place] and moved to [place]. She states that she completed a master's degree in Lao and literature completed high school. 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 She does not have any kids is single and collects disability. She currently lives at [facility] a [facility]. MENTAL STATUS EXAM: General Appearance: Patient appears to be overweight, stated age is alert, somewhat directable and is superficially cooperative. Patient appears to have poor hygiene and grooming. Behavior: Patient is seated without any agitated behavior. Superficially cooperative. Speech: Patient's speech is fluent and nonpressured. Poverty of speech. Mood/Affect: Patient reports their mood is "okay", affect is incongruent and constricted. Suicidality/Homicidality: Patient denies having any homicidal ideation intent or plan. Denies any suicidal ideations intent or plan Perceptions: Patient denies any visual hallucinations and denies any auditory hallucinations Though content/process: There is no evidence of any delusional thought content, minimizes her symptoms and condition. Memory and concentration: AOX3, grossly intact for the purposes of this session. Can spell "WORLD" backwards Judgment and insight: Limited. STRENGTHS/WEAKNESSES: strength is that patient is resilient. Weakness is that patient has poor judgment INTELLECT: average IMPRESSIONS: Bipolar disorder, mixed features. Nicotine dependence PLAN: -Patient is admitted under court order on a pickup order to [facility] for stabilization of psychiatric symptoms and safety. Patient signed medication consent and is placed in patient's chart. Patient is currently on a court order or treatment. -Medications : Will start patient on her home dose of Lamictal 150 mg twice a day for mood stabilization. Patient is not agreeable to take Depakote or lithium at this time as she states that she is ALLERGIC and has gained weight on them in the past. Patient is agreeable to continue with Zyprexa however dose will be increased to 15 mg daily at bedtime for mood stabilization/sleep. Can continue home dose of Ativan 2 mg daily at bedtime for sleep. I added melatonin 3 mg daily at bedtime for sleep. -Ativan and Geodon PRN for agitation/aggression -Patient was informed of the risks, benefits and side effects of the medication and patient verbally consented to taking the medications. Patient signed med consent form and was placed in chart. -Internal Medicine consult to perform medical evaluation and physical. -NRT - nicotine patch -SW on board for discharge planning. Encourage patient to participate in groups to work on coping skills. Likely discharge in 2-3 days back to [facility]. 08/30/19 11:53
--- NOTE | 2019-08-30 16:05 | P.HPIM ---
History of Present Illness H&P Date: 08/30/19 Leandra Cramer, he is a 53-year-old female who was admitted to the psychiatry care unit at [facility] on a court order for Denny is a patient and treatment. Patient stated that she is currently residing at a [facility] she walked to a store and bought some cigarettes she was standing outside smoking when she was picked by the police and brought into emergency room she was admitted to psychiatry unit for further treatment. Patient has a known history of bipolar disorder, she follows with [facility], she states that she takes Prozac and Ativan and Lamictal and Zyprexa as outpatient. Medically patient stated that she is doing well, she denies any physical symptoms there is no fever or chills no headache or dizziness no chest pain no shortness of breath no cough no nausea or vomiting no abdominal pain no diarrhea no burning with urination no frequency or urgency and no hematuria, there is no weakness or numbness in any of her extremities there is no change in vision speech or gait her patient. On review of our office records, patient has a history of hypothyroidism she was maintained on Synthroid in the past she stated that she has not been taking thyroid medications recently. On presentation to emergency room patient had normal vitals with a temperature of 97.8 pulse 90 respiration 18 blood pressure of 138/89 and pulse ox of 97% on room air, labs including CBC and CMP were within normal limits Past Medical History Past Medical History: GERD/Reflux Additional Past Medical History / Comment(s): back pain History of Any Multi-Drug Resistant Organisms: None Reported Past Surgical History: Breast Surgery Past Anesthesia/Blood Transfusion Reactions: No Reported Reaction Past Psychological History: Anxiety, Bipolar Smoking Status: Current every day smoker Past Alcohol Use History: None Reported Past Drug Use History: None Reported Medications and Allergies Home Medications Medication Instructions Recorded Confirmed Type Omeprazole 20 mg PO DAILY #30 capsule. 11/18/17 08/29/19 Rx LORazepam [Ativan] 0.5 mg PO BID PRN 08/29/19 08/29/19 History LORazepam [Ativan] 2 mg PO HS 08/29/19 08/29/19 History OLANZapine [ZyPREXA] 15 mg PO HS 08/29/19 08/29/19 History lamoTRIgine [LaMICtal] 150 mg PO BID 08/29/19 08/29/19 History Allergies Allergy/AdvReac Type Severity Reaction Status Date / Time codeine Allergy Itching Verified 08/29/19 18:45 risperidone [From Risperdal] Allergy Unknown Verified 08/29/19 18:45 Physical Exam Vitals: Vital Signs Temp Pulse Pulse Resp BP BP Pulse Ox 08/29/19 22:25 98.8 F 08/29/19 22:06 100.4 F H 93 L 08/29/19 18:30 97.4 F L 101 H 20 111/45 08/29/19 17:01 90 18 132/84 98 In general patient is alert responsive in no apparent distress HEENT head normocephalic and atraumatic Neck is supple no JVD no goiter no lymphadenopathy Chest exam reveals clear respiratory sounds bilaterally no wheezing Cardiac exam reveals regular heart sounds S1 and S2 no gallops no murmurs Abdomen is soft nontender no organomegaly with normal bowel sounds Extremity exam reveals no edema no cyanosis or clubbing Neurological examination reveals no gross focal deficit Results CBC & Chem 7: 08/30/19 07:30 08/30/19 07:30 Thrombosis Risk Factor Assmnt - Choose All That Apply Any of the Below Risk Factors Present?: No Other Risk Factors: No Other congenital or acquired thrombophilia - If yes, enter type in comment: No Thrombosis Risk Factor Assessment Level: Very Low Risk Assessment and Plan Plan: #1 bipolar disorder patient is admitted on a court order to the psychiatry unit, she denies any suicidal or homicidal ideation, management per primary psychiatry team. #2 underlying history of hypothyroidism, patient stated that she has not been taking her thyroid medications, will check TSH, and restart thyroid medications if necessary #3 previous history of recurrent urinary tract infection Will check urine analysis Patient is medically stable will follow during this admission for management thank you very much for consultation.
[2019-08-30] MEDS ORDERED: MELATONIN 3 MG TABLET PO SCH (21:00)
[2019-08-30] MEDS: OLANZapine 5 MG TAB PO SCH (21:49)
[2019-08-30] MEDS: LORazepam 1 MG TAB PO SCH (21:50)
[2019-08-31 04:27] LABS: Hemoglobin A1C 5.8 % (4.0-6.0)
[2019-08-31] MEDS: NICOTINE 14MG/24HR PATCH TRANSDERM SCH (08:17)
[2019-08-31] MEDS: lamoTRIgine 100 MG TAB PO SCH ×2 (08:17→21:23)
[2019-08-31] MEDS: PANTOPRAZOLE 40 MG TABLET PO SCH (08:17)
--- NOTE | 2019-08-31 11:12 | P.PN ---
Progress Note - Text Progress Note Date: 08/31/19 Interval History: Patient was seen wandering the hallways and about to go into afternoon activity group and was directable and agreeable to speak with insurance underwriter sales in the office. Patient appeared to be more cooperative today and more directable. Patient was more appropriate during conversation. She continues to be somewhat superficial however did state that she went to 2 groups yesterday however cannot elaborate on what she has learned. She states that "I just go to the groups and learn from them". She states that she cannot remember what her regular dose of Zyprexa is and states that "it's probably around 100 or 200". She states that her mood has been gradually improving and states that her anxiety is improving as well. She claims that she slept approximately 6-7 hours last night. At this time patient denies any suicidal or homical ideations, intent or plan. Patient denies any auditory, visual hallucinations and denies any paranoia or delusions. Patient denies any side effects from the medications and has been compliant with meds. Mental Status Exam: General Appearance: Patient appears to be overweight, stated age is alert, somewhat directable and is superficially cooperative. Patient appears to have poor hygiene and grooming. Behavior: Patient is seated without any agitated behavior. Superficially cooperative. Speech: Patient's speech is fluent and nonpressured. Mood/Affect: Patient reports their mood is "good", affect is congruent and constricted. Suicidality/Homicidality: Patient denies having any homicidal ideation intent or plan. Denies any suicidal ideations intent or plan Perceptions: Patient denies any visual hallucinations and denies any auditory santos llucinations Though content/process: There is no evidence of any delusional thought content, minimizes her symptoms and condition. Memory and concentration: AOX3, grossly intact for the purposes of this session Judgment and insight: Limited Assessment Bipolar disorder, mixed features. Nicotine dependence Plan: -Patient continues to meet criteria for inpatient psychiatric admission for symptom stabilization and safety. Patient signed medication consent and is placed in patient's chart. Patient is currently on a court order treatment. -Medications: We'll continue with Lamictal 150 mg twice a day for mood stabilization. Continue with Zyprexa 15 mg daily at bedtime for mood stabilization/sleep. Continue with Ativan 2 mg nightly for sleep. Melatonin 5 mg daily at bedtime for sleep. -When necessary Ativan and Geodon for agitation/aggression. -Blood work reviewed, TSH appears to be within normal limits. -NRT - nicotine patch -SW on board for discharge planning. Encouraged the patient to participate in milieu. Likely discharge [facility].
[2019-08-31] MEDS: OLANZapine 5 MG TAB PO SCH (21:23)
[2019-08-31] MEDS: LORazepam 1 MG TAB PO SCH (21:23)
[2019-08-31] MEDS: MELATONIN 5 MG TABLET PO SCH (21:23)
--- NOTE | 2019-09-01 09:15 | P.PN ---
Progress Note - Text Progress Note Date: 09/01/19 Interval History: Patient was seen laying down in her bed this morning and appeared to be just g etting up for sleep. Patient was directable and agreeable to speak to sign writer letterer or painter. She did not voice any concerns overnight and states that she slept through the night. She claims that her mood is "a lot more stable". She claims that she has been participating in groups. She states that she is eating all her meals and has fair energy during the day however likes to sleep in. At this time patient denies any suicidal or homical ideations, intent or plan. Patient denies any auditory, visual hallucinations and denies any paranoia or delusions. Patient denies any side effects from the medications and has been compliant with meds. Mental Status Exam: General Appearance: Patient appears to be overweight, stated age is alert, somewhat directable and is superficially cooperative. Patient appears to have poor hygiene and grooming. Behavior: Patient is seated without any agitated behavior. Superficially cooperative. Speech: Patient's speech is fluent and nonpressured. Mood/Affect: Patient reports their mood is "alright", affect is congruent and constricted. Suicidality/Homicidality: Patient denies having any homicidal ideation intent or plan. Denies any suicidal ideations intent or plan Perceptions: Patient denies any visual hallucinations and denies any auditory hallucinations Though content/process: There is no evidence of any delusional thought content, minimizes her symptoms and condition. Poverty of content. Memory and concentration: AOX3, grossly intact for the purposes of this session Judgment and insight: Chronically Limited Assessment Bipolar disorder, mixed features. Nicotine dependence Plan: -Patient continues to meet criteria for inpatient psychiatric admission for symptom stabilization and safety. Patient signed medication consent and is placed in patient's chart. Patient is currently on a court order treatment. -Medications: We'll continue with Lamictal 150 mg twice a day for mood stabilization. Continue with Zyprexa 15 mg daily at bedtime for mood st abilization/sleep. Continue with Ativan 2 mg nightly for sleep. Melatonin 5 mg daily at bedtime for sleep. -When necessary Ativan and Geodon for agitation/aggression. -NRT - nicotine patch -SW on board for discharge planning. Encouraged the patient to participate in milieu. Likely discharge back to [facility] on Tuesday.
[2019-09-01] MEDS: lamoTRIgine 100 MG TAB PO SCH ×2 (09:27→20:43)
[2019-09-01] MEDS: NICOTINE 14MG/24HR PATCH TRANSDERM SCH (09:27)
[2019-09-01] MEDS: PANTOPRAZOLE 40 MG TABLET PO SCH (09:27)
[2019-09-01] MEDS: OLANZapine 5 MG TAB PO SCH (20:43)
[2019-09-01] MEDS: MELATONIN 5 MG TABLET PO SCH (20:43)
[2019-09-01] MEDS: LORazepam 1 MG TAB PO SCH (20:43)
[2019-09-02] MEDS: NICOTINE 14MG/24HR PATCH TRANSDERM SCH (08:12)
[2019-09-02] MEDS: lamoTRIgine 100 MG TAB PO SCH ×2 (08:12→21:05)
[2019-09-02] MEDS: PANTOPRAZOLE 40 MG TABLET PO SCH (08:13)
[2019-09-02 08:41] VITALS: BP 115/57; PULSE 86; RESP 16
--- NOTE | 2019-09-02 11:03 | P.PN ---
Progress Note - Text Progress Note Date: 09/02/19 Interval History: Patient was seen in the hallways this morning and was directable and agreeable to speak to process description writer. She did not voice any concerns overnight and states that she slept through the night approximately 8 hours. She claims that her mood is "pretty stable". She claims that she has been participating in groups. Patient continues to be concrete in her thought process and gives few details about her symptoms. She states that she is eating all her meals and has fair energy today . Patient was asking about discharge. At this time patient denies any suicidal or homical ideations, intent or plan. Patient denies any auditory, visual hallucinations and denies any paranoia or delusions. Patient denies any side effects from the medications and has been compliant with meds. Mental Status Exam: General Appearance: Patient appears to be overweight, stated age is alert, somewhat directable and is superficially cooperative. Patient appears to have poor hygiene and grooming. Behavior: Patient is seated without any agitated behavior. Superficially cooperative. Speech: Patient's speech is fluent and nonpressured. Mood/Affect: Patient reports their mood is "pretty stable", affect is congruent and constricted. Suicidality/Homicidality: Patient denies having any homicidal ideation intent or plan. Denies any suicidal ideations intent or plan Perceptions: Patient denies any visual hallucinations and denies any auditory hallucinations Though content/process: There is no evidence of any delusional thought content, minimizes her symptoms and condition. Poverty of content in his concrete. Memory and concentration: AOX3, grossly intact for the purposes of this session Judgment and insight: Chronically Limited Assessment Bipolar disorder, mixed features. Nicotine dependence Plan: -Patient continues to meet criteria for inpatient psychiatric admission for symptom stabilization and safety. Patient signed medication consent and is placed in patient's chart. Patient is currently on a court order treatment. -Medications: We'll continue with Lamictal 150 mg twice a day for mood stabilization. Continue with Zyprexa 15 mg daily at bedtime for mood stabilization/sleep. Continue with Ativan 2 mg nightly for sleep. Melatonin 5 mg daily at bedtime for sleep. -When necessary Ativan and Geodon for agitation/aggression. -NRT - nicotine patch -SW on board for discharge planning. Encouraged the patient to participate in milieu. Likely discharge back to nursing home on Tuesday.
[2019-09-02] MEDS: MELATONIN 5 MG TABLET PO SCH (21:05)
[2019-09-02] MEDS: OLANZapine 5 MG TAB PO SCH (21:06)
[2019-09-02] MEDS: LORazepam 1 MG TAB PO SCH (21:06)
[2019-09-03] MEDS: lamoTRIgine 100 MG TAB PO SCH (08:56)
[2019-09-03] MEDS: NICOTINE 14MG/24HR PATCH TRANSDERM SCH (08:56)
[2019-09-03] MEDS: PANTOPRAZOLE 40 MG TABLET PO SCH (08:56)
--- NOTE | 2019-09-03 11:56 | P.PN ---
Progress Note - Text Progress Note Date: 09/03/19 Interval History: Patient was seen in her room this morning getting up from bed and was directable and agreeable to speak to staff writer. She did not endorse any concerns overnight and states that she slept through the night approximately 7-8 hours. Patient appeared to have improvement in her hygiene and grooming and states that she showered yesterday. She claims that her mood is "pretty good". She denied any depressive symptoms or any manic symptoms at this time. She claims that she has been participating in groups and went to goal setting group this morning. Patient continues to be concrete in her thought process however is cooperative and appropriate. She states that she is eating all her meals and has fair energy today. Patient was asking about discharge and when she can go back to the snf. At this time patient denies any suicidal or homical ideations, intent or plan. Patient denies any auditory, visual hallucinations and denies any paranoia or delusions. Patient denies any side effects from the medications and has been compliant with meds. Mental Status Exam: General Appearance: Patient appears to be overweight, stated age is alert, directable and is more cooperative. Patient appears to have improving hygiene and grooming. Behavior: Patient is seated without any agitated behavior. More cooperative. Speech: Patient's speech is fluent and nonpressured. Mood/Affect: Patient reports their mood is "pretty good", affect is congruent and constricted. Suicidality/Homicidality: Patient denies having any homicidal ideation intent or plan. Denies any suicidal ideations intent or plan Perceptions: Patient denies any visual hallucinations and denies any auditory hallucinations Though content/process: There is no evidence of any delusional thought content. Poverty of content/concrete. Memory and concentration: AOX3, grossly intact for the purposes of this session Judgment and insight: Chronically Limited, improving mildly Assessment Bipolar disorder, mixed features. Nicotine dependence Plan: -Patient continues to meet criteria for inpatient psychiatric admission for symptom stabilization and safety. Patient signed medication consent and is placed in patient's chart. Patient is currently on a court order treatment. -Medications: We'll continue with Lamictal 150 mg twice a day for mood stabilization. Continue with Zyprexa 15 mg daily at bedtime for mood stabilization/sleep. Continue with Ativan 2 mg nightly for sleep. Melatonin 5 mg daily at bedtime for sleep. -When necessary Ativan and Geodon for agitation/aggression. -NRT - nicotine patch -SW on board for discharge planning. Encouraged the patient to participate in milieu. Patient is psychiatrically stable at this point and suitable for discharge back to the snf.
--- NOTE | 2019-09-03 13:32 | P.DS ---
Providers Date of admission: 08/29/19 15:34 Expected date of discharge: 09/03/19 Attending physician: Lucio Ugalde MD Consults: 08/29/19 16:55 Consult Physician Routine Consulting Provider: Gabbie Rosen Consult Reason/Comments: H & P and medical care Do you want consulting provider notified?: Yes Primary care physician: Gabbie Rosen - Discharge Diagnosis(es) (1) Bipolar disorder, mixed Current Visit: Yes Status: Acute Priority: High (2) Nicotine dependence Current Visit: Yes Status: Acute Priority: Low Hospital Course: Admission HPI: Patient is a 53-year-old female with a long history of bipolar disorder who currently lives at [facility] has no kids is single and collects disability. Patient presented to the hospital yesterday by police on a pickup order for a psychiatric evaluation. Patient has a long history with [facility] and a chronic history of bipolar disorder with noncompliance. As per ER report, claimed that patient stated that she was smoking a cigarette outside and was picked up to go to the hospital. Occupational Therapist Rehab Manager spoke with [facility] Dr. Banks previously who stated that patient has been acting more bizarre, erratic and worsening sleep and also has been minimizing her symptoms for several weeks. Patient appeared to be disheveled in appearance and appeared to be shivering at times during the conversation. She denied any problems at the long-term and states that "I'm a grown woman and I can leave and go to the store whenever I want". Patient was however directable, had poverty of content and was somewhat guarded during conversation. She states that "I did nothing wrong". She has superficial insight and poor judgment. She claims to be sleeping less recently however states that she has been taking her medications including Lamictal and Zyprexa. She states that "the ladies at [facility] don't like me and I think that they were setting me up". She denied any manic symptoms at this time including racing thoughts and increase in goal-directed behavior. She denied any depressive symptoms or anhedonia. Patient denies any suicidal or homicidal ideations intent or plan. At this time patient denies any auditory or visual hallucinations. Patient admits to using cigarettes daily however denies any other recreational drug use. Patient's UDS was positive for benzodiazepines. Hospital course: Upon admission to the unit patient was initially bizarre, disheveled having poor sleep. Patient was however directable and agreeable to commence treatment. Patient got along well with other patients on the unit and followed unit protocol. Patient was compliant with the medications and denied any side effects throughout hospital course. Patient was started on Zyprexa 15 mg nightly for mood stabilization/sleep, restarted on Lamictal 150 mg twice a day for mood stabilization, restarted on her home dose of Ativan 2 mg daily at bedtime for sleep, melatonin titrated up to a dose of 5 mg daily at bedtime for sleep. Patient spoke of her stressors and engaged in therapy both group and individual. Patient was mainly isolative during hospitalization however attempted to participate as best as she can in the milieu. Patient was also s een by medical team for history and physical exam. Throughout the course of the hospitalization patient gradually improved with regards to mood, behavior, hygiene, sleep and became future oriented with improved insight and judgment. On the day of discharge patient denied any suicidal or homicidal ideations intent or plan denied any auditory or visual hallucinations. Patient endorsed wanting to live for her future and her health. The patient denied any access to guns or weapons. Patient denied any paranoia and did not endorse any delusions. Patient does not have a significant history of substance abuse however was counseled on abstaining from all substances including alcohol and marijuana. Patient was also counseled on the medications and need for regular compliance and was encouraged to follow-up with their outpatient appointment for mental health and also for primary care. Patient's guardian will be informed by social media executive the patient will be discharged today. Mental status exam: General Appearance: Patient appears to be overweight, stated age is alert, pleasant, and cooperative. Patient is in no acute distress and has improved hygiene and grooming Behavior: Patient is calmly seated without any agitated behavior. Speech: Patient's speech is fluent and nonpressured. Mood/Affect: Patient reports their mood is "good", affect is congruent and euthymic. Suicidality/Homicidality: Patient denies having any suicidal or homicidal ideation intent or plan. Perceptions: Patient denies any auditory or visual hallucinations. Though content/process: There is no evidence of any delusional thought content and thought process is linear and goal-directed. Noble however future oriented. Memory and concentration: AOX3, grossly intact for the purposes of this session. Can spell "WORLD" backwards correctly. Judgment and insight: improved with guarded prognosis Impression: Bipolar disorder, mixed episode Nicotine dependence Plan: -Continue with discharge today as patient has improved and stabilized psychiatrically and is not currently an imminent threat to herself and/or others. -Continue medications: Zyprexa 15 mg nightly for mood stabilization/sleep, Lamictal 150 mg twice a day for mood stabilization, Ativan 2 mg nightly for sleep, melatonin 5 mg nightly for sleep. -Patient was counseled on the need for medication compliance and appropriate follow-up at mental health and also primary care for medical issues. Patient verbalized understanding and agreed. -Social work to contact guardian to inform them of patient's discharge today as patient will be [facility]. Social work also to arrange for patients follow up appointments with [facility] for psychiatric care along with follow up with primary care provider. -Patient counseled on abstaining from recreational drugs and marijuana and alcohol. Was informed/educated on the adverse effects on their physical and mental health. Patient verbally agreed and understood. -Patient was instructed to return to the hospital or seek immediate medical care if their psychiatric or medical symptoms do worsen or reoccur. Allergies Allergy/AdvReac Type Severity Reaction Status Date / Time codeine Allergy Itching Verified 08/29/19 18:45 risperidone [From Risperdal] Allergy Unknown Verified 08/29/19 18:45 Laboratory Results WBC 9.4 k/uL (3.8-10.6) 08/30/19 07:30 RBC 5.10 m/uL (3.80-5.40) 08/30/19 07:30 Hgb 14.4 gm/dL (11.4-16.0) 08/30/19 07:30 Hct 44.6 % (34.0-46.0) 08/30/19 07:30 MCV 87.6 fL (80.0-100.0) 08/30/19 07:30 MCH 28.2 pg (25.0-35.0) 08/30/19 07:30 MCHC 32.2 g/dL (31.0-37.0) 08/30/19 07:30 RDW 15.1 % (11.5-15.5) 08/30/19 07:30 Plt Count 386 k/uL (150-450) 08/30/19 07:30 Neutrophils % (Manual) 57 % 08/30/19 07:30 Lymphocytes % (Manual) 36 % 08/30/19 07:30 Monocytes % (Manual) 2 % 08/30/19 07:30 Eosinophils % (Manual) 5 % 08/30/19 07:30 Neutrophils # (Manual) 5.36 k/uL (1.3-7.7) 08/30/19 07:30 Lymphocytes # (Manual) 3.38 k/uL (1.0-4.8) 08/30/19 07:30 Monocytes # (Manual) 0.19 k/uL (0-1.0) 08/30/19 07:30 Eosinophils # (Manual) 0.47 k/uL (0-0.7) 08/30/19 07:30 Nucleated RBCs 0 /100 WBC (0-0) 08/30/19 07:30 Manual Slide Review Performed 08/30/19 07:30 RBC Morphology Normal 08/30/19 07:30 Sodium 139 mmol/L (137-145) 08/30/19 07:30 Potassium 5.0 mmol/L (3.5-5.1) 08/30/19 07:30 Chloride 104 mmol/L (98-107) 08/30/19 07:30 Carbon Dioxide 27 mmol/L (22-30) 08/30/19 07:30 Anion Gap 8 mmol/L 08/30/19 07:30 BUN 15 mg/dL (7-17) 08/30/19 07:30 Creatinine 0.78 mg/dL (0.52-1.04) 08/30/19 07:30 Est GFR (CKD-EPI)AfAm >90 (>60 ml/min/1.73 sqM) 08/30/19 07:30 Est GFR (CKD-EPI)NonAf 89 (>60 ml/min/1.73 sqM) 08/30/19 07:30 Glucose 87 mg/dL (74-99) 08/30/19 07:[address] Glu mg/dL 120 08/30/19 07:30 Hemoglobin A1c 5.8 % (4.0-6.0) 08/30/19 07:30 Calcium 9.3 mg/dL (8.4-10.2) 08/30/19 07:30 Total Bilirubin 0.2 mg/dL (0.2-1.3) 08/30/19 07:30 AST 18 U/L (14-36) 08/30/19 07:30 ALT 14 U/L (4-34) 08/30/19 07:30 Alkaline Phosphatase 78 U/L (38-126) 08/30/19 07:30 Total Protein 6.9 g/dL (6.3-8.2) 08/30/19 07:30 Albumin 3.6 g/dL (3.5-5.0) 08/30/19 07:30 Triglycerides 57 mg/dL (<150) 08/30/19 07:30 Cholesterol 125 mg/dL (<200) 08/30/19 07:30 LDL Cholesterol, Calc 57 mg/dL (0-99) 08/30/19 07:30 HDL Cholesterol 57 mg/dL (40-60) 08/30/19 07:30 TSH 3.340 mIU/L (0.465-4.680) 08/30/19 07:30 Urine Opiates Screen Not Detected (NotDetected) 08/29/19 14:09 Ur Oxycodone Screen Not Detected (NotDetected) 08/29/19 14:09 Urine Methadone Screen Not Detected (NotDetected) 08/29/19 14:09 Ur Propoxyphene Screen Not Detected (NotDetected) 08/29/19 14:09 Ur Barbiturates Screen Not Detected (NotDetected) 08/29/19 14:09 U Tricyclic Antidepress Not Detected (NotDetected) 08/29/19 14:09 Ur Phencyclidine Scrn Not Detected (NotDetected) 08/29/19 14:09 Ur Amphetamines Screen Not Detected (NotDetected) 08/29/19 14:09 U Methamphetamines Scrn Not Detected (NotDetected) 08/29/19 14:09 U Benzodiazepines Scrn Detected (NotDetected) H 08/29/19 14:09 Urine Cocaine Screen Not Detected (NotDetected) 08/29/19 14:09 U Marijuana (THC) Screen Not Detected (NotDetected) 08/29/19 14:09 Vital Signs Temp 98.8 F 09/02/19 21:13 Pulse 86 09/02/19 08:40 Resp 16 09/02/19 08:40 BP 115/57 09/02/19 08:40 Pulse Ox 97 09/02/19 08:40 Intake & Output 09/02/19 09/03/19 09/03/19 18:59 06:59 18:59 Weight 93.5 kg Patient Condition at Discharge: Stable Plan - Discharge Summary Discharge Rx Participant: Yes New Discharge Prescriptions: New Nicotine 14Mg/24Hr Patch [Habitrol] 1 patch TRANSDERM DAILY 14 Days patch Melatonin 5 mg PO HS 30 Days tablet Pantoprazole [Protonix] 40 mg PO DAILY 30 Days tablet. OLANZapine [ZyPREXA] 15 mg PO HS #30 tablet LORazepam [Ativan] 2 mg PO HS 30 Days #30 tab LORazepam [Ativan] 0.5 mg PO BID PRN 30 Days #60 tab PRN Reason: Anxiety Continue lamoTRIgine [LaMICtal] 150 mg PO BID #30 tab Discontinued Omeprazole 20 mg PO DAILY #30 capsule. LORazepam [Ativan] 2 mg PO HS LORazepam [Ativan] 0.5 mg PO BID PRN PRN Reason: Anxiety OLANZapine [ZyPREXA] 15 mg PO HS Discharge Medication List LORazepam [Ativan] 0.5 mg PO BID PRN 30 Days #60 tab 09/03/19 [Rx] LORazepam [Ativan] 2 mg PO HS 30 Days #30 tab 09/03/19 [Rx] Melatonin 5 mg PO HS 30 Days tablet 09/03/19 [Rx] Nicotine 14Mg/24Hr Patch [Habitrol] 1 patch TRANSDERM DAILY 14 Days patch 09/03/19 [Rx] OLANZapine [ZyPREXA] 15 mg PO HS #30 tablet 09/03/19 [Rx] Pantoprazole [Protonix] 40 mg PO DAILY 30 Days tablet. 09/03/19 [Rx] lamoTRIgine [LaMICtal] 150 mg PO BID #30 tab 09/03/19 [Rx] Follow up Appointment(s)/Referral(s): [facility] [Outside] - 09/07/19 11:30 am (Dr. Banks September 06 at 11:30.) Gabbie Rosen MD [Primary Care Provider] - 1-2 days Activity/Diet/Wound Care/Special Instructions: Activity and diet as tolerated. Avoid the use of street drugs and alcohol. Take all medications as prescribed. When you are in need of refills on your medications please contact your medical provider and/or outpatient psychiatrist to have this done. Please go to scheduled outpatient appointment for aftercare treatment. If symptoms return or become worse, call the crisis line at and/or go to the nearest emergency room for evaluation. Discharge Disposition: HOME SELF-CARE
[2019-09-03 18:43] VITALS: TEMP 98.5
== END 2019-09-03 17:12 | disposition home or self-care (01) | DRG 885 ==
LOC: EC 13:12 → EEVIPCON 13:12 → 3MHU 15:34
PROVIDERS: ADMIT Psychiatry & Neurology Psychiatry; ATTEND Psychiatry & Neurology Psychiatry
DX: F31.60 Bipolar disorder, current episode mixed, unspecified (principal); E03.9 Hypothyroidism, unspecified; F17.210 Nicotine dependence, cigarettes, uncomplicated; F41.9 Anxiety disorder, unspecified; K21.9 Gastro-esophageal reflux disease without esophagitis; T38.1X6A Underdosing of thyroid hormones and substitutes, initial encounter; Z91.128 Patient's intentional underdosing of medication regimen for other reason; Z79.899 Other long term (current) drug therapy; Z87.440 Personal history of urinary (tract) infections; Z88.5 Allergy status to narcotic agent; Z88.8 Allergy status to other drugs, medicaments and biological substances
CPT/HCPCS: 80053; 80061; 80306; 82075; 83036; 84443; 85025; 99285

== ENCOUNTER → 2022-06-15 | Outpatient (CLI) | payer MEDICARE, MEDICAID ==
[2022-06-15 17:05] LABS: ALT 15 U/L (8-44); AST 14 U/L (13-35); Albumin 4.1 g/dL (3.8-4.9); Albumin/Globulin Ratio 1.37 (1.60-3.17); Alkaline Phosphatase 80 U/L (41-126); Bilirubin, Conjugated <0.20 mg/dL (0.20-0.40); Chol/HDL Ratio 3.12 Ratio; Glucose 75 mg/dL (70-110); LDL Cholesterol,Calculated 94.8 mg/dL (0.0-131.0); Total Protein 7.1 g/dL (6.2-8.2)
== END | disposition home or self-care (01) ==
LOC: LABWHC1 09:47
PROVIDERS: ATTEND Psychiatry & Neurology Psychiatry
DX: F31.2 Bipolar disorder, current episode manic severe with psychotic features (principal); Z79.899 Other long term (current) drug therapy
CPT/HCPCS: 36415; 80061; 80076; 80299; 82947; 83036; 84439; 84443

== ENCOUNTER → 2023-04-13 | Outpatient (CLI) | payer MEDICARE, OTHER ==
[2023-04-13 18:13] LABS: ALT 17 U/L (8-44); AST 11 U/L (13-35); Albumin 4.1 g/dL (3.8-4.9); Albumin/Globulin Ratio 1.41 Ratio (1.60-3.17); Alkaline Phosphatase 74 U/L (41-126); Bilirubin, Conjugated <0.20 mg/dL (0.20-0.40); Bilirubin,Unconjugated >0 mg/dL (0.20-1.00); Chol/HDL Ratio 2.51 Ratio; Globulin 2.9 g/dL (1.6-3.3); Glucose 125 mg/dL (70-110); LDL Cholesterol,Calculated 62.4 mg/dL (0.0-131.0); T4, Free (Free Thyroxine) 1.47 ng/dL (0.80-1.80); Total Bilirubin 0.2 mg/dL (0.3-1.2)
[2023-04-15 12:05] LABS: Fluoxetine (Prozac) <25 ng/mL (50-480)
== END | disposition home or self-care (01) ==
LOC: LABWHC1 08:25
PROVIDERS: ATTEND Psychiatry & Neurology Psychiatry
DX: F31.2 Bipolar disorder, current episode manic severe with psychotic features (principal); Z79.899 Other long term (current) drug therapy
CPT/HCPCS: 36415; 80061; 80076; 80299; 82947; 83036; 84439; 84443

== ENCOUNTER → 2024-11-22 | Outpatient (CLI) | payer MEDICARE, OTHER ==
[2024-11-22 12:12] LABS: ALT 15 U/L (8-44); AST 15 U/L (13-35); Albumin 4.1 g/dL (3.8-4.9); Albumin/Globulin Ratio 1.24 Ratio (1.60-3.17); Alkaline Phosphatase 68 U/L (41-126); Bilirubin,Unconjugated >0 mg/dL (0.20-1.00); Cholesterol 160.00 mg/dL (0.00-200.00); Globulin 3.3 g/dL (1.6-3.3); Glucose 110 mg/dL (70-110); HDL Cholesterol 46.50 mg/dL (40.00-60.00); LDL Cholesterol,Calculated 79.9 mg/dL (0.0-131.0); T4, Free (Free Thyroxine) 1.31 ng/dL (0.80-1.80); Total Protein 7.4 g/dL (6.2-8.2); Triglycerides 168.00 mg/dL (0.00-149.00); VLDL Calculation 33.60 mg/dL (5.00-40.00)
== END | disposition home or self-care (01) ==
LOC: LABWHC1 08:50
PROVIDERS: ATTEND Psychiatry & Neurology Psychiatry
DX: F31.2 Bipolar disorder, current episode manic severe with psychotic features (principal); Z79.899 Other long term (current) drug therapy
CPT/HCPCS: 36415; 80061; 80076; 80299; 82947; 83036; 84439; 84443